=== PATIENT | male | born 1940 | race African-American/Black ===

== ENCOUNTER 2019-04-08 09:12 | Observation (INO) | payer MEDICARE ==
[2019-04-08] MEDS ORDERED: SODIUM CHLORIDE 0.9% 500 ML 500 ML IV STA (10:21)
--- NOTE | 2019-04-08 10:26 | ED ---
General Adult HPI - General Source: patient, family, RN notes reviewed Mode of arrival: wheelchair Limitations: no limitations <González Toledo - Last Filed: 04/08/19 12:41> <Halie Dempsey - Last Filed: 04/08/19 14:11> - General Chief complaint: Weakness Stated complaint: weakness,black out Time Seen by Provider: 04/08/19 10:05 - History of Present Illness Initial comments: Mr. Herrera is a 79-year-old male with a past medical history of hypertension, syncope, CVA, diabetes mellitus who presents to the emergency department for a chief complaint of weakness. Patient states that last night around midnight pat ient woke up and tried to get out of bed and then feels like he passed out or had a syncopal episode. States that he then tried to get out of bed but his legs were so weak he could hardly do it. Patient denies any chest pain shortness of breath or diaphoresis with this episode. States he still feels weak at this time but has not had any other syncopal episodes. States his heart feels like it is beating quickly and then stops. Granddaughter however states that this episode happened this morning. She states she feels that this weakness has been ongoing for over a week. States that he was seen at [facility] one week ago and diagnosed with dehydration. States that he seems to be worsening.Patient has no other complaints at this time including shortness of breath, chest pain, abdominal pain, nausea or vomiting, headache, or visual changes. (González Toledo) - Related Data Home Medications Medication Instructions Recorded Confirmed Atorvastatin Calcium [Lipitor] 10 mg PO HS 04/08/19 04/08/19 Cholecalciferol [Vitamin D3 (25 5,000 unit PO DAILY 04/08/19 04/08/19 Mcg = 1000 Iu)] Losartan Potassium [Cozaar] 100 mg PO DAILY 04/08/19 04/08/19 Metoprolol Succinate (ER) [Toprol 50 mg PO DAILY@1200 04/08/19 04/08/19 XL] Tamsulosin HCl [Flomax] 0.4 mg PO DAILY 04/08/19 04/08/19 amLODIPine [Norvasc] 10 mg PO HS 04/08/19 04/08/19 hydrALAZINE HCL [Apresoline] 50 mg PO TID 04/08/19 04/08/19 Allergies Allergy/AdvReac Type Severity Reaction Status Date / Time Penicillins Allergy Unknown Verified 04/08/19 10:09 Childhood Review of Systems ROS Other: All systems not noted in ROS Statement are negative. <González Toledo P - Last Filed: 04/08/19 12:41> ROS Other: All systems not noted in ROS Statement are negative. <Halie Dempsey E - Last Filed: 04/08/19 14:11> ROS Statement: Those systems with pertinent positive or pertinent negative responses have been documented in the HPI. Past Medical History Past Medical History: CVA/TIA, Diabetes Mellitus, Hypertension, Syncope History of Any Multi-Drug Resistant Organisms: None Reported Past Surgical History: Bowel Resection Additional Past Surgical History / Comment(s): cataract Past Psychological History: No Psychological Hx Reported Smoking Status: Never smoker Past Alcohol Use History: None Reported Past Drug Use History: None Reported <González Toledo P - Last Filed: 04/08/19 12:41> General Exam Limitations: no limitations General appearance: alert, in no apparent distress Head exam: Present: atraumatic, normocephalic, normal inspection Eye exam: Present: normal appearance, PERRL, EOMI. Absent: scleral icterus, con junctival injection, periorbital swelling ENT exam: Present: normal exam, mucous membranes moist Neck exam: Present: normal inspection, full ROM. Absent: tenderness, meningismus, lymphadenopathy Respiratory exam: Present: normal lung sounds bilaterally. Absent: respiratory distress, wheezes, rales, rhonchi, stridor Cardiovascular Exam: Present: regular rate, normal rhythm, normal heart sounds. Absent: systolic murmur, diastolic murmur, rubs, gallop, clicks GI/Abdominal exam: Present: soft, normal bowel sounds. Absent: distended, tenderness, guarding, rebound, rigid Neurological exam: Present: alert, oriented X3, CN II-XII intact, normal gait (No ataxia), other (GCS 15) Expanded Patient oriented to: Present: person, place, time Speech: Present: fluid speech Cranial nerves: EOM's Intact: Normal, Tongue Deviation: Normal, Nystagmus: Normal, Facial Sensation: Normal Cerebellar function: Finger to Nose: Normal Upper motor neuron: Pronator Drift: Normal Sensory exam: Upper Extremity Light Touch: Normal, Upper Extremity Pin Prick: Normal, Lower Extremity Light Touch: Normal, Lower Extremity Pin Prick: Normal Motor strength exam: RUE: 4, LUE: 4, RLE: 4 Eye Response: (4) open spontaneously Motor Response: (6) obeys commands Verbal Response: (5) oriented [place] Total: 15 Psychiatric exam: Present: normal affect, normal mood <González Toledo - Last Filed: 04/08/19 12:41> Course Vital Signs 04/08/19 04/08/19 04/08/19 09:19 12:00 13:35 Temperature 97.7 F 97.7 F Pulse Rate 98 99 99 Respiratory 18 18 18 Rate Blood Pressure 128/64 144/61 157/64 O2 Sat by Pulse 101 H 99 99 Oximetry Medical Decision Making - Lab Data Result diagrams: 04/08/19 10:41 04/08/19 10:41 <González Toledo - Last Filed: 04/08/19 12:41> - Lab Data Result diagrams: 04/08/19 10:41 04/08/19 10:41 <Halie Dempsey - Last Filed: 04/08/19 14:11> - Medical Decision Making Mr. Herrera is an 79-year-old male with a past medical history hypertension, CVA, diabetes who presents for a chief complaint of weakness. Last night around midnight patient woke up try to get out of bed and then passed out. Patient states his legs were so weak that he could not walk well. He denies chest pain shortness of breath or abdominal pain with this. States he does still feel weak but has not had another syncopal episode. Granddaughter states that patient's history is inaccurate in that he had this episode this morning. However she states he has been weak for over a week now. Was seen in the ER at [facility] and discharged home with a diagnosis of dehydration. However granddaughter is concerned that this is now worsening. On exam he is a pleasant male. Well appearing. Vitals are stable. Patient was able to ambulate but does have noted weakness when doing so. No ataxia. CBC and CMP are unremarkable. Mildly elevated creatinine of 1.48, no comparison creatinines for baseline. Troponin is negative. EKG is unremarkable. CT brain was obtained which showed no acute intracranial abnormality. There is evidence of old infarct which patient is aware of. Chest x-ray showed borderline increased cardiac silhouette, the patient denies any shortness of breath. Patient reevaluated. Daughters are very concerned about this. Given near syncopal episode with high heart score patient will be admitted for further evaluation and cardiology consultation. Dr. Dempsey discussed this case with Dr. Rios patient's primary care provider who accepted this admission. (González Toledo) I, Dr. Halie Dempsey, Personally saw and examined the patient. I have reviewed and agree with the BOBBIN SORTER/PA findings, including all diagnostic interpretations and treatment plans as written unless otherwise stated. I was present for the mckenzie portions of any procedures and the inclusive time noted for any critical care treatment. The patient was complaining of back pain, however per patient and his family that is chronic. He had equal pulses, no abdominal bruit, no carotid bruit. At this time unlikely his symptoms are due to aortic pathology. He has no shortness of breath to suggest PE. Stable for transfer to the floor. (Halie Dempsey) - Lab Data Lab Results 04/08/19 04/08/19 04/08/19 Range/Units 10:41 10:41 10:41 WBC 4.6 (3.8-10.6) k/uL RBC 4.65 (4.30-5.90) m/uL Hgb 12.2 L (13.0-17.5) gm/dL Hct 39.4 (39.0-53.0) % MCV 84.6 (80.0-100.0) fL MCH 26.2 (25.0-35.0) pg MCHC 31.0 (31.0-37.0) g/dL RDW 14.1 (11.5-15.5) % Plt Count 258 (150-450) k/uL Neutrophils % 66 % Lymphocytes % 21 % Monocytes % 6 % Eosinophils % 3 % Basophils % 0 % Neutrophils # 3.0 (1.3-7.7) k/uL Lymphocytes # 0.9 L (1.0-4.8) k/uL Monocytes # 0.3 (0-1.0) k/uL Eosinophils # 0.1 (0-0.7) k/uL Basophils # 0.0 (0-0.2) k/uL PT (9.0-12.0) sec INR (<1.2) APTT (22.0-30.0) sec Sodium 140 (137-145) mmol/L Potassium 4.1 (3.5-5.1) mmol/L Chloride 105 (98-107) mmol/L Carbon Dioxide 25 (22-30) mmol/L Anion Gap 10 mmol/L BUN 16 (9-20) mg/dL Creatinine 1.48 H (0.66-1.25) mg/dL Est GFR (CKD-EPI)AfAm 51 (>60 ml/min/1.73 sqM) Est GFR (CKD-EPI)NonAf 44 (>60 ml/min/1.73 sqM) Glucose 110 H (74-99) mg/dL Plasma Lactic Acid Colt 1.0 (0.7-2.0) mmol/L Calcium 9.9 (8.4-10.2) mg/dL Magnesium 2.2 (1.6-2.3) mg/dL Total Bilirubin 0.4 (0.2-1.3) mg/dL AST 32 (17-59) U/L ALT 37 (21-72) U/L Alkaline Phosphatase 86 (38-126) U/L Troponin I (0.000-0.034) ng/mL Total Protein 7.3 (6.3-8.2) g/dL Albumin 4.3 (3.5-5.0) g/dL TSH 3.690 (0.465-4.680) mIU/L Urine Color Urine Appearance (Clear) Urine pH (5.0-8.0) Ur Specific [place] (1.001-1.035) Urine Protein (Negative) Urine Glucose (UA) (Negative) Urine Ketones (Negative) Urine Blood (Negative) Urine Nitrite (Negative) Urine Bilirubin (Negative) Urine Urobilinogen (<2.0) mg/dL Ur Leukocyte Esterase (Negative) 04/08/19 04/08/19 04/08/19 Range/Units 10:41 10:41 11:42 WBC (3.8-10.6) k/uL RBC (4.30-5.90) m/uL Hgb (13.0-17.5) gm/dL Hct (39.0-53.0) % MCV (80.0-100.0) fL MCH (25.0-35.0) pg MCHC (31.0-37.0) g/dL RDW (11.5-15.5) % Plt Count (150-450) k/uL Neutrophils % % Lymphocytes % % Monocytes % % Eosinophils % % Basophils % % Neutrophils # (1.3-7.7) k/uL Lymphocytes # (1.0-4.8) k/uL Monocytes # (0-1.0) k/uL Eosinophils # (0-0.7) k/uL Basophils # (0-0.2) k/uL PT 10.3 (9.0-12.0) sec INR 1.0 (<1.2) APTT 24.6 (22.0-30.0) sec Sodium (137-145) mmol/L Potassium (3.5-5.1) mmol/L Chloride (98-107) mmol/L Carbon Dioxide (22-30) mmol/L Anion Gap mmol/L BUN (9-20) mg/dL Creatinine (0.66-1.25) mg/dL Est GFR (CKD-EPI)AfAm (>60 ml/min/1.73 sqM) Est GFR (CKD-EPI)NonAf (>60 ml/min/1.73 sqM) Glucose (74-99) mg/dL Plasma Lactic Acid Colt (0.7-2.0) mmol/L Calcium (8.4-10.2) mg/dL Magnesium (1.6-2.3) mg/dL Total Bilirubin (0.2-1.3) mg/dL AST (17-59) U/L ALT (21-72) U/L Alkaline Phosphatase (38-126) U/L Troponin I <0.012 (0.000-0.034) ng/mL Total Protein (6.3-8.2) g/dL Albumin (3.5-5.0) g/dL TSH (0.465-4.680) mIU/L Urine Color Yellow Urine Appearance Clear (Clear) Urine pH 6.0 (5.0-8.0) Ur Specific [place] 1.008 (1.001-1.035) Urine Protein Negative (Negative) Urine Glucose (UA) Negative (Negative) Urine Ketones Negative (Negative) Urine Blood Negative (Negative) Urine Nitrite Negative (Negative) Urine Bilirubin Negative (Negative) Urine Urobilinogen <2.0 (<2.0) mg/dL Ur Leukocyte Esterase Negative (Negative) Disposition Is patient prescribed a controlled substance at d/c from ED?: No Time of Disposition: 12:44 <González Toledo P - Last Filed: 04/08/19 12:41> <Halie Dempsey - Last Filed: 04/08/19 14:11> Clinical Impression: Near syncope, Weakness Disposition: ADMITTED IP TO THIS HOSP Condition: Fair
[2019-04-08 11:02] LABS: Basophils % (A) 0 %; Eosinophils # (A) 0.1 k/uL (0-0.7); Eosinophils % (A) 3 %; HCT 39.4 % (39.0-53.0); HGB 12.2 gm/dL (13.0-17.5); Lymphocytes # (A) 0.9 k/uL (1.0-4.8); Lymphocytes % (A) 21 %; MCH 26.2 pg (25.0-35.0); MCV 84.6 fL (80.0-100.0); Mean Platelet Volume 7.1; Monocytes # (A) 0.3 k/uL (0-1.0); Monocytes % (A) 6 %; Neutrophils % (A) 66 %; Platelet Count 258 k/uL (150-450); RBC 4.65 m/uL (4.30-5.90); RDW 14.1 % (11.5-15.5); WBC 4.6 k/uL (3.8-10.6)
[2019-04-08 11:18] LABS: Albumin 4.3 g/dL (3.5-5.0); Calcium 9.9 mg/dL (8.4-10.2); Magnesium 2.2 mg/dL (1.6-2.3); Potassium 4.1 mmol/L (3.5-5.1); Total Bilirubin 0.4 mg/dL (0.2-1.3); Total Protein 7.3 g/dL (6.3-8.2)
[2019-04-08 11:27] LABS: Partial Thromboplastin Time 24.6 sec (22.0-30.0); Prothrombin Time 10.3 sec (9.0-12.0)
--- NOTE | 2019-04-08 11:40 | CT ---
EXAMINATION TYPE: CT brain wo con DATE OF EXAM: 04/08/2019 COMPARISON: None HISTORY: 79-year-old male weakness and dizziness. TECHNIQUE: Examination was done in axial plane without intravenous contrast. Coronal and sagittal r econstructions performed. CT DLP: 1158.4 mGycm Automated exposure control for dose reduction was used. FINDINGS: There is no evidence of acute intracranial hemorrhage, acute ischemic changes, mass, mass-effect, or extra-axial fluid collection. There is no effacement of cerebral sulci or basal subarachnoid cister ns. There is no midline shift. Barragan-white matter distinction is preserved. Old deep white matter infarct with encephalomalacia left mondragon radiata extending into the basal gang priscila. Mild patchy white matter hypodensities in both cerebral hemispheres. Mild ventricular prominence seco ndary to central cerebral atrophy. Leftward nasal septal deviation. Paranasal sinuses and mastoid air cells are well pneumatized. Orbits and globes are intact. IMPRESSION: Mild age-related atrophy. Old white matter infarct left mondragon radiata and background of mild chronic small vessel ischemic disease. No acute intracranial abnormality seen.
--- NOTE | 2019-04-08 11:40 | XR ---
EXAMINATION TYPE: XR chest 2V DATE OF EXAM: 04/08/2019 COMPARISON: NONE HISTORY: Weakness and dizziness TECHNIQUE: Frontal and lateral views of the chest are obtained. FINDINGS: There is no focal air space opacity, pleural effusion, or pneumothorax seen. The cardiac silhouette size is borderline enlarged. The osseous structures are intact. Hypertrophic changes are present at the acromioclavicular joints. Aorta is dense. IMPRESSION: Borderline increased size of cardiac silhouette.
[2019-04-08 12:01] LABS: Appearance,Urine Clear (Clear); Bilirubin,Urine Negative (Negative); Blood,Urine Negative (Negative); Color,Urine Yellow; Glucose,Urine (UA) Negative (Negative); Ketones,Urine Negative (Negative); Leukocyte Esterase,Urine Negative (Negative); Nitrite,Urine Negative (Negative); Protein,Urine Negative (Negative); Specific Gravity,Urine 1.008 (1.001-1.035); Urobilinogen,Urine <2.0 mg/dL (<2.0)
[2019-04-08] MEDS ORDERED: NITROGLYCERIN SL TABS 0.4 MG TAB SUBLINGUAL PRN (12:39)
[2019-04-08] MEDS ORDERED: HYDROcodone/APAP 5-325MG 1 EACH TAB PO PRN (12:50)
[2019-04-08] MEDS ORDERED: HYDROcodone/APAP 5-325MG 1 EACH TAB PO STA (12:50)
--- NOTE | 2019-04-08 16:43 | US ---
EXAMINATION TYPE: US carotid duplex BILAT DATE OF EXAM: 04/08/2019 COMPARISON: NONE CLINICAL HISTORY: pre-syncope, left bruit. Syncope EXAM MEASUREMENTS: RIGHT: Peak Systolic Velocity (PSV) cm/sec ----- Right CCA: 73.2 ----- Right ICA: 104.0 ----- Right ECA: 117.9 ICA/CCA ratio: 1.4 RIGHT: End Diastole cm/sec ----- Right CCA: 13.8 ----- Right ICA: 23.7 ----- Right ECA: 5.2 LEFT: Peak Systolic Velocity (PSV) cm/sec ----- Left CCA: 100.2 ----- Left ICA: 81.7 ----- Left ECA: 75.3 ICA/CCA ratio: 0.8 LEFT: End Diastole cm/sec ----- Left CCA: 13.4 ----- Left ICA: 19.8 ----- Left ECA: 0.0 VERTEBRALS (direction of flow): Right Vertebral: Antegrade Left Vertebral: Antegrade Rhythm: Normal No elevated velocities, no significant stenosis. IMPRESSION: There is antegrade flow in the vertebral arteries. The images and measurements suggests less than 20% stenosis in both internal carotid arteries. Criteria for Assigning % of Stenosis / Diameter reduction (Estimation based on the indirect measurements of the internal carotid artery velocities (ICA PSV). 1. Normal (no stenosis)=ICA PSV < 125 cm/s: ratio < 2.0: ICA EDV<40 cm/s. 2. Less than 50% stenosis=ICA PSV < 125 cm/s: ratio < 2.0: ICA EDV<40 cm/s. 3. 50 to 69% stenosis=ICA PSV of 125 to 230 cm/s: ration 2.0 ? 4.0: ICA EDV 40-100 cm/s. 4. Greater than 70% stenosis to near occlusion= ICA PSV > 230 cm/s: ratio > 4.0: ICA EDV > 100 cm/s. 5. Near occlusion= ICA PSV velocities may be low or undetectable: variable ratio and ICA EDV. 6. Total occlusion=unable to detect flow.
[2019-04-08] MEDS ORDERED: REGADENOSON 0.4 MG/5 ML SYRINGE IV ONE (18:14)
[2019-04-08] MEDS: hydrALAZINE HCL 50 MG TAB PO SCH ×2 (18:20→20:28)
[2019-04-08] MEDS: SODIUM CHLORIDE 0.9% 1,000 ML IV SCH (18:42)
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
--- NOTE | 2019-04-08 19:10 | XR ---
EXAMINATION TYPE: XR lumbosacral spine min 4V DATE OF EXAM: 04/08/2019 COMPARISON: NONE HISTORY: None TECHNIQUE: 5 views FINDINGS: Lumbar vertebra have fairly normal alignment. There is mild narrowing at L4-5 disc. There i s spurring anteriorly throughout the lumbar spine. I see no compression fracture. Sacroiliac joints a ppear intact. IMPRESSION: Spondylotic multilevel changes. No fracture seen.
[2019-04-08] MEDS: SENNOSIDES-DOCUSATE SODIUM 1 EACH TAB PO SCH (20:28)
[2019-04-08] MEDS ORDERED: amLODIPine 10 MG TAB PO SCH (21:00)
[2019-04-08] MEDS ORDERED: ATORVASTATIN 10 MG TAB PO SCH (21:00)
--- NOTE | 2019-04-08 21:39 | PN ---
PROGRESS NOTE Mr. Herrera was evaluated by me today after initial evaluation by my nurse practitioner Stephanie. He is comfortable resting. He had an episode when he felt weak and tired, but did not pass out. The patient insists that he never had a syncope. He did complain of some pressure in the chest however. He is resting comfortably without symptoms. His troponins are normal. EKG does not reveal any acute changes. I am recommending that we will perform a Lexiscan stress test tomorrow. He appears to be clinically dehydrated. I will hydrate him today. I will perform a Lexiscan stress test tomorrow. Based on this, I will make further recommendations. I will review the echocardiogram as well. The patient's clinical picture does not suggest acute myocardial injury and the pain seems atypical. However, given his risk factors, we would like to exclude any myocardial ischemia or injury. Discussed with the patient at length. We will hydrate him tonight, perform a Lexiscan stress test tomorrow and based on clinical course, we will make further recommendations. MMBÁRBARAL / BEARN: [id number] /
[2019-04-09] MEDS ORDERED: AMINOPHYLLINE 500 MG/20 ML VIAL IV PRN (07:00)
[2019-04-09] MEDS ORDERED: CAFFEINE CITRATE 60 MG/3 ML VIAL IV PRN (07:00)
[2019-04-09 07:05] LABS: Basophils % (A) 0 %; Eosinophils # (A) 0.2 k/uL (0-0.7); Eosinophils % (A) 4 %; HCT 36.1 % (39.0-53.0); HGB 11.5 gm/dL (13.0-17.5); Lymphocytes # (A) 1.7 k/uL (1.0-4.8); Lymphocytes % (A) 39 %; MCH 27.4 pg (25.0-35.0); MCHC 31.8 g/dL (31.0-37.0); MCV 86.2 fL (80.0-100.0); Mean Platelet Volume 7.2; Monocytes # (A) 0.3 k/uL (0-1.0); Monocytes % (A) 6 %; Neutrophils # (A) 2.1 k/uL (1.3-7.7); Neutrophils % (A) 47 %; Platelet Count 244 k/uL (150-450); RBC 4.19 m/uL (4.30-5.90); RDW 14.1 % (11.5-15.5); WBC 4.4 k/uL (3.8-10.6)
[2019-04-09 07:18] LABS: Calcium 9.3 mg/dL (8.4-10.2)
[2019-04-09] MEDS ORDERED: DIPYRIDAMOLE 56.9 MG in SODIUM CHLORIDE 0.9% 38.62 ML IV ONE (07:45)
[2019-04-09] MEDS ORDERED: DOBUTamine DRIP for NUC MED 500 MG in DEXTROSE/WATER 1 250ML.BAG IV ONE (08:07)
[2019-04-09 08:29] VITALS: RESP 18
[2019-04-09] MEDS: SODIUM CHLORIDE 0.9% 1,000 ML IV SCH (08:38)
[2019-04-09] MEDS ORDERED: LOSARTAN 50 MG TAB PO SCH (09:00)
[2019-04-09] MEDS ORDERED: ASPIRIN 325 MG TAB PO SCH (09:00)
[2019-04-09] MEDS ORDERED: TAMSULOSIN 0.4 MG CAP.ER.24H PO SCH (09:00)
[2019-04-09] MEDS ORDERED: ASPIRIN 81 MG PO SCH (09:00)
--- NOTE | 2019-04-09 10:55 | P.CRDCN ---
History of Present Illness History of present illness: This is a pleasant 79-year-old -[place] male past medical history significant for hypertension, dyslipidemia, diabetes mellitus and history of CVA with residual right-sided weakness. He denies history of coronary artery disease and does not follow with a rehabilitation caseworker for any reason. We've been asked to see him in consultation secondary to a near syncopal episode this morning. The patient states he woke up and was attempting to walk to the bathroom when he felt acutely weak. He states it felt like he was going to fall. He is quite adament that he did not pass out nor did he feel like he was going to pass out. It reminded him of how he fell when he suffered a previous stroke. He also experienced some vague chest discomfort described as a pressure in the mid-sternal region. There was no radiation and no associated symptoms. He denies associated shortness of breath, nausea, vomiting or diaphoresis. He is seen and examined resting comfortably in no acute distress. He states he had no recurrence of these symptoms since coming to the hospital. He was recently treated at [facility] for dehydration. Per the ED note the family was present in ED and has noticed increased weakness for the past week. No family present during my exam. EKG reveals sinus mechanism with no acute ST or T wave abnormalities noted. Chest x-ray is negative for acute cardiopulmonary process. Laboratory data reviewed, WBC 4.6, hemoglobin 12.2, platelets 258, sodium 140, potassium 4.1, creatinine 1.48, magnesium 2.2, cardiac enzymes negative 1, TSH 3.69. Current cardiac medications include amlodipine 10 mg daily, Toprol 50 mg daily, losartan 100 mg daily, hydralazine 50 mg 3 times a day and atorvastatin 10 mg daily. At the time of my exam: CONSTITUTIONAL: Denies fever. Denies chills. EYES: Denies blurred vision. Denies vision changes. Denies eye pain. EARS, NOSE, MOUTH & THROAT: Denies headache. Denies sore throat. Denies ear pain. CARDIOVASCULAR: Denies chest pain. Denies shortness of breath. Denies orthopnea. Denies PND. Denies palpitations. RESPIRATORY: Denies cough. GASTROINTESTINAL: Denies abdominal pain. Denies diarrhea. Denies constipation. Denies nausea. Denies vomiting. MUSCULOSKELETAL: Denies myalgias. INTEGUMENTARY: Denies pruitis. Denies rash. NEUROLOGIC: Denies numbness. Denies tingling. Denies weakness. PSYCHIATRIC: Denies anxiety. Denies depression. ENDOCRINE: Denies fatigue. Denies weight change. Denies polydipsia. Denies polyurina. GENITOURINARY: Denies burning, hematuria or urgency with micturation. HEMATOLOGIC: Denies history of anemia. Denies bleeding. Blood pressure 150/75 heart rate 90 afebrile and maintaining oxygen saturation on room air GENERAL: This is a 79-year-old -[place] male in no apparent distress at the time of my examination. HEENT: Head is atraumatic, normocephalic. Pupils are equal, round. Sclerae an icteric. Conjunctivae are clear. Mucous membranes of the mouth are moist. Neck is supple. There is no jugular venous distention. No carotid bruit is heard. LUNGS: Clear to auscultation no wheezes, rales or rhonchi. No chest wall tenderness is noted on palpation or with deep breathing. HEART: Regular rate and rhythm with systolic ejection murmur at the left sternal border, more prominent at the apex, no rubs or gallops. S1 and S2 heard. ABDOMEN: Soft, nontender. Bowel sounds are heard. No organomegaly noted. EXTREMITIES: No evidence of peripheral edema and no calf tenderness noted. VASCULAR: Radial and dorsalis pedis pulses palpated, no evidence of clubbing. NEUROLOGIC: Patient is awake, alert and oriented x3. ASSESSMENT Generalized weakness Chest pain, atypical. Hypertension History of CVA Dyslipidemia Diabetes mellitus Kidney injury, no old levels for comparison. PLAN Continue to obtain serial cardiac enzymes to rule out an acute event. Obtain 2D echocardiogram and doppler study to assess cardiac structure and function. Obtain bilateral carotid doppler to assess for stenosis. Resume hydralazine, losartan, atorvastatin, aspirin, amlodipine and toprol. Ongoing telemetry monitoring. Repeat BMP in the morning. Check NTproBNP and lipid profile. Further recommendations to follow based on clinical course. Thank you kindly for this consultation. Nurse Practitioner note has been reviewed, I agree with a documented findings and plan of care. Patient was seen and examined. Past Medical History Past Medical History: CVA/TIA, Diabetes Mellitus, Hyperlipidemia, Hypertension, Prostate Disorder, Syncope Additional Past Medical History / Comment(s): CVA with right sided weakness, multiple TIAs, prostate CA- no radiation or chem, History of Any Multi-Drug Resistant Organisms: None Reported Past Surgical History: Bowel Resection Additional Past Surgical History / Comment(s): cataract removed. right hand index and middle finger were cut off and reattached. Past Anesthesia/Blood Transfusion Reactions: No Reported Reaction Past Psychological History: No Psychological Hx Reported Smoking Status: Never smoker Past Alcohol Use History: None Reported Past Drug Use History: None Reported Medications and Allergies Home Medications Medication Instructions Recorded Confirmed Type Atorvastatin Calcium [Lipitor] 10 mg PO HS 04/08/19 04/08/19 History Cholecalciferol [Vitamin D3 (25 5,000 unit PO DAILY 04/08/19 04/08/19 History Mcg = 1000 Iu)] Losartan Potassium [Cozaar] 100 mg PO DAILY 04/08/19 04/08/19 History Metoprolol Succinate (ER) [Toprol 50 mg PO DAILY@1200 04/08/19 04/08/19 History XL] Tamsulosin HCl [Flomax] 0.4 mg PO DAILY 04/08/19 04/08/19 History amLODIPine [Norvasc] 10 mg PO HS 04/08/19 04/08/19 History hydrALAZINE HCL [Apresoline] 50 mg PO TID 04/08/19 04/08/19 History Allergies Allergy/AdvReac Type Severity Reaction Status Date / Time Penicillins Allergy Unknown Verified 04/08/19 10:09 Childhood Physical Exam Vitals: Vital Signs Temp Pulse Pulse Resp BP BP Pulse Ox 04/08/19 13:56 98.3 F 90 17 150/75 98 04/08/19 13:35 97.7 F 99 18 157/64 99 04/08/19 12:00 99 18 144/61 99 04/08/19 09:19 97.7 F 98 18 128/64 101 H Intake and Output 04/08/19 04/08/19 04/08/19 06:59 14:59 22:59 Other: Weight 99.79 kg Results 04/09/19 06:49 04/09/19 06:49 Cardiac Enzymes 04/08/19 04/08/19 Range/Units 10:41 10:41 AST 32 (17-59) U/L Troponin I <0.012 (0.000-0.034) ng/mL Coagulation 04/08/19 Range/Units 10:41 PT 10.3 (9.0-12.0) sec APTT 24.6 (22.0-30.0) sec CBC 04/08/19 Range/Units 10:41 WBC 4.6 (3.8-10.6) k/uL RBC 4.65 (4.30-5.90) m/uL Hgb 12.2 L (13.0-17.5) gm/dL Hct 39.4 (39.0-53.0) % Plt Count 258 (150-450) k/uL Comprehensive Metabolic Panel 04/08/19 Range/Units 10:41 Sodium 140 (137-145) mmol/L Potassium 4.1 (3.5-5.1) mmol/L Chloride 105 (98-107) mmol/L Carbon Dioxide 25 (22-30) mmol/L BUN 16 (9-20) mg/dL Creatinine 1.48 H (0.66-1.25) mg/dL Glucose 110 H (74-99) mg/dL Calcium 9.9 (8.4-10.2) mg/dL AST 32 (17-59) U/L ALT 37 (21-72) U/L Alkaline Phosphatase 86 (38-126) U/L Total Protein 7.3 (6.3-8.2) g/dL Albumin 4.3 (3.5-5.0) g/dL Current Medications Generic Name Dose Route Start Last Admin Trade Name Freq PRN Reason Stop Dose Admin Hydrocodone Bitart/Acetaminophen 1 each 04/08/19 12:50 Datil 5-325 PO Q8H PRN Pain Amlodipine Besylate 10 mg 04/08/19 21:00 Norvasc PO HS [facility] Aspirin 81 mg 04/09/19 09:00 Aspirin PO DAILY [facility] Atorvastatin Calcium 10 mg 04/08/19 21:00 Lipitor PO HS [facility] Hydralazine HCl 50 mg 04/08/19 16:00 Apresoline PO TID [facility] Losartan Potassium 100 mg 04/09/19 09:00 Cozaar PO DAILY [facility] Metoprolol Succinate 50 mg 04/09/19 12:00 Toprol Xl PO DAILY@1200 [facility] Nitroglycerin 0.4 mg 04/08/19 12:39 Nitrostat SUBLINGUAL Q5M PRN Chest Pain Intake and Output 04/08/19 04/08/19 04/08/19 06:59 14:59 22:59 Other: Weight 99.79 kg Patient Weight 04/09/19 06:59 Weight 99.79 kg 04/08/19 10:41 04/08/19 10:41
--- NOTE | 2019-04-09 11:05 | P.PN ---
Subjective This is a pleasant 79-year-old -[place] male past medical history significant for hypertension, dyslipidemia, diabetes mellitus and history of CVA with residual right-sided weakness. 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 We've been asked to see him in consultation secondary to a near syncopal episode this morning. The patient states he woke up and was attempting to walk to the bathroom when he felt acutely weak. He states it felt like he was going to fall. He is quite adament that he did not pass out nor did he feel like he was going to pass out. It reminded him of how he fell when he suffered a previous stroke. He also experienced some vague chest discomfort described as a pressure in the mid-sternal region. There was no radiation and no associated symptoms. He denies associated shortness of breath, nausea, vomiting or diaphoresis. He is seen and examined resting comfortably in no acute distress. He states he had no recurrence of these symptoms since coming to the hospital. He was recently treated at [facility] for dehydration. Per the ED note the family was present in ED and has noticed increased weakness for the past week. No family present during my exam. EKG reveals sinus mechanism with no acute ST or T wave abnormalities noted. Chest x-ray is negative for acute cardiopulmonary process. Laboratory data reviewed, WBC 4.6, hemoglobin 12.2, platelets 258, sodium 140, potassium 4.1, creatinine 1.48, magnesium 2.2, cardiac enzymes negative 1, TSH 3.69. Current cardiac medications include amlodipine 10 mg daily, Toprol 50 mg daily, losartan 100 mg daily, hydralazine 50 mg 3 times a day and atorvastatin 10 mg daily. 04/09/2019 Pt is seen and examined sitting up in bed in no acute distress. He denies any further symptoms of chest pain. He continues to feel overall weak and states when he tries to stand up he cannot manage or have the strength to get himself up out of bed. Carotid doppler show less than 20% stenosis bilaterally. Echo has been obtained and will be reviewed. Laboratory data, WBC 4.4, hemoglobin 11.5, platelets 244, sodium 141, potassium 4.0, creatinine 1.3, cardiac enzymes negative 3, proBNP 100, LDL 86 and HDL 71. Blood pressure 131/65 heart rate 84 afebrile maintaining oxygen saturation on room air. GENERAL: This is a 79-year-old -[place] male in no apparent distress at the time of my examination. HEENT: Head is atraumatic, normocephalic. Pupils are equal, round. Sclerae anicteric. Conjunctivae are clear. Mucous membranes of the mouth are moist. Neck is supple. There is no jugular venous distention. No carotid bruit is heard. LUNGS: Clear to auscultation no wheezes, rales or rhonchi. No chest wall tenderness is noted on palpation or with deep breathing. HEART: Regular rate and rhythm with systolic ejection murmur at the left sternal border, more prominent at the apex, no rubs or gallops. S1 and S2 heard. EXTREMITIES: Trace bilateral lower extremity edema and no calf tenderness noted. ASSESSMENT Generalized weakness Chest pain, atypical. Hypertension History of CVA Dyslipidemia Diabetes mellitus Kidney injury, no old levels for comparison. PLAN An acute coronary event has been ruled out. Perform dobutamine stress echocardiogram to assess for stress-induced cardiac i schemia. If stress test is normal he may be discharged from a cardiac perspective. No evidence of heart failure. Lower extremity edema may be related to amlodipine. Nurse Practitioner note has been reviewed, I agree with a documented findings and plan of care. Patient was seen and examined. Objective - Vital Signs Vital signs: Vital Signs Temp 97.9 F 04/09/19 07:30 Pulse 84 04/09/19 08:00 Resp 18 04/09/19 08:00 BP 131/65 04/09/19 07:30 Pulse Ox 98 04/09/19 07:30 Intake & Output 04/08/19 04/09/19 04/09/19 18:59 06:59 18:59 Intake Total 600 Output Total 300 Balance 300 Weight 99.79 kg Intake: Intake, IV Titration 600 Amount Sodium Chloride 0.9% 1, 600 000 ml @ 75 mls/hr IV . [id number] KAVIN Rx#:[id number] Output: Urine 300 Other: Voiding Method Toilet Toilet Toilet # Voids 2 - Labs CBC & Chem 7: 04/09/19 06:49 04/09/19 06:49 Labs: Abnormal Lab Results - Last 24 Hours (Table) 04/08/19 04/08/19 04/09/19 Range/Units 10:41 10:41 06:49 RBC (4.30-5.90) m/uL Hgb 12.2 L (13.0-17.5) gm/dL Hct (39.0-53.0) % Lymphocytes # 0.9 L (1.0-4.8) k/uL Chloride 110 H (98-107) mmol/L Creatinine 1.48 H 1.30 H (0.66-1.25) mg/dL Glucose 110 H (74-99) mg/dL HDL Cholesterol 71 H (40-60) mg/dL 04/09/19 Range/Units 06:49 RBC 4.19 L (4.30-5.90) m/uL Hgb 11.5 L (13.0-17.5) gm/dL Hct 36.1 L (39.0-53.0) % Lymphocytes # (1.0-4.8) k/uL Chloride (98-107) mmol/L Creatinine (0.66-1.25) mg/dL Glucose (74-99) mg/dL HDL Cholesterol (40-60) mg/dL
[2019-04-09] MEDS ORDERED: METOPROLOL SUCCINATE (ER) 50 MG TAB.ER.24H PO SCH (12:00)
[2019-04-09 12:02] VITALS: BP 155/68; PULSE 81; TEMP 97.3
[2019-04-09] MEDS: SENNOSIDES-DOCUSATE SODIUM 1 EACH TAB PO SCH (12:56)
[2019-04-09] MEDS: hydrALAZINE HCL 50 MG TAB PO SCH (12:56)
--- NOTE | 2019-04-09 13:47 | P.DS ---
Providers Date of admission: 04/08/19 12:39 Expected date of discharge: 04/09/19 (Near syncopal episode) Attending physician: Vahe Rios Consults: 04/08/19 12:39 Consult Physician Routine Consulting Provider: Mihir Fitzgerald Consult Reason/Comments: near syncope Do you want consulting provider notified?: Yes Primary care physician: Vahe Rios Final diagnoses: #1 near syncopal episode with possible orthostatic hypotension. #2 carotid artery stenosis was not hemodynamic significance with 20% occlusion. #3 stress exercise test reported to be negative and cleared for discharge by cardiology team. 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 #5 advanced prostatic cancer which patient requested no treatment. #6 hyperlipidemia. #7 hypertension with hypertensive heart disease. #8 questionable TIA with a previous history of CVA. #9 history of vitamin D deficiency. #10 prostatic enlargement. Presentation to the ER 79 years old -[place] male presented to the emergency room with the near-syncopal episode and weakness of the lower extremities, patient not a diabetic. They did consult cardiology who did a workup. Hospital course: Patient admitted under observation) 158 bed 1 monitored. Patient underwent carotid duplex study which was essentially negative . Patient had several testing including computed tomography scan of the brain on admission CT of the brain indicating mild age-related atrophy, old white matter infarct in the left mondragon Calle at the. Background of mild chronic small vessel disease no acute intracranial abnormality. Also chest x-ray was done with the border Increased size of cardiac silhouette. EKG was normal sinus rhythm with a rate of 88 bpm and nonspecific T-wave abnormality. Patient underwent stress testing this morning, cardiology team called the front man and the nurse indicating the patient was negative for a stress test and he can go home with the clearance from cardiology. Patient is conscious alert oriented 3 able to stand up and walk and ambulate. I did not see any results of the echocardiogram which was ordered by the cardiology. Examination on discharge: Patient is conscious alert oriented 3, his granddaughter at bedside and I did explain in front of the patient that he has the history of the biopsy of the prostate with malignant neoplasm of the prostate, and she understands and the had a question about his illness which is wondering and he was hiding that from his family but they need to know as patient has agreed to let them know. 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 Nieto. Patient seen on consultation by Dr. GRETCHEN Calle will order Lexiscan stress test. Patient is conscious alert oriented 3 his vital sign indicating that temperature 97.3 F oral and pulse rate is 81 beats per minutes and regular sinus respiratory rate 18/m normal nonlabored. His blood pressure 155/68 with a mean 97 his pulse ox 99% on room air. His HEENT was negative no changes. Neck was supple no JVD no thyromegaly no lymphadenopathy trachea midline. Chest clear to auscultation and percussion, heart was regular sinus rhythm, abdomen was soft positive bowel sounds no organ enlargement, extremities no edema and positive pulses and patient is able to ambulate. Neurologically no acute events no lateralizing sign and conscious alert oriented 3 moving 4 extremities. Assessment and plan: Patient is stable general condition to be discharged home today, follow-up was Dr. Rios and follow-up with the cardiology. Patient Condition at Discharge: Fair Plan - Discharge Summary Discharge Rx Participant: Yes New Discharge Prescriptions: New Aspirin 81 mg PO DAILY chew Sennosides-Docusate Sodium [Senokot-S] 1 each PO BID tab Continue hydrALAZINE HCL [Apresoline] 50 mg PO TID amLODIPine [Norvasc] 10 mg PO HS Tamsulosin HCl [Flomax] 0.4 mg PO DAILY Losartan Potassium [Cozaar] 100 mg PO DAILY Atorvastatin Calcium [Lipitor] 10 mg PO HS Cholecalciferol [Vitamin D3 (25 Mcg = 1000 Iu)] 5,000 unit PO DAILY Metoprolol Succinate (ER) [Toprol XL] 50 mg PO DAILY@1200 No Action Ibuprofen [Motrin] 600 mg PO Q8HR PRN PRN Reason: Moderate To Severe Pain Ibuprofen 600 mg PO TID-W/MEALS PRN PRN Reason: Pain Discharge Medication List Atorvastatin Calcium [Lipitor] 10 mg PO HS 04/08/19 [History] Cholecalciferol [Vitamin D3 (25 Mcg = 1000 Iu)] 5,000 unit PO DAILY 04/08/19 [History] Losartan Potassium [Cozaar] 100 mg PO DAILY 04/08/19 [History] Metoprolol Succinate (ER) [Toprol XL] 50 mg PO DAILY@1200 04/08/19 [History] Tamsulosin HCl [Flomax] 0.4 mg PO DAILY 04/08/19 [History] amLODIPine [Norvasc] 10 mg PO HS 04/08/19 [History] hydrALAZINE HCL [Apresoline] 50 mg PO TID 04/08/19 [History] Aspirin 81 mg PO DAILY chew 04/09/19 [Rx] Ibuprofen 600 mg PO TID-W/MEALS PRN 04/09/19 [History] Ibuprofen [Motrin] 600 mg PO Q8HR PRN 04/09/19 [History] Sennosides-Docusate Sodium [Senokot-S] 1 each PO BID tab 04/09/19 [Rx] Follow up Appointment(s)/Referral(s): Vahe Rios MD [Primary Care Provider] - 1-2 days Discharge Disposition: HOME SELF-CARE
--- NOTE | 2019-04-09 18:31 | ECHOF ---
Referral Reason:cp, sob, syncope MEASUREMENTS -------- HEIGHT: 172.7 cm WEIGHT: 99.8 kg BP: 153/72 RVIDd: 3.5 cm (< 3.3) IVSd: 1.4 cm (0.6 - 1.1) LVIDd: 4.2 cm (3.9 - 5.3) LVPWd: 1.4 cm (0.6 - 1.1) IVSs: 1.8 cm LVIDs: 3.5 cm LVPWs: 1.6 cm LA Diam: 3.5 cm (2.7 - 3.8) LAESV Index (A-L): 37.74 ml/m Ao Diam: 3.6 cm (2.0 - 3.7) AV Cusp: 1.6 cm (1.5 - 2.6) MV EXCURSION: 17.701 mm (> 18.000) MV EF SLOPE: 79 mm/s (70 - 150) EPSS: 0.6 cm MV E Ambrose: 1.29 m/s MV DecT: 193 ms MV A Ambrose: 1.00 m/s MV E/A Ratio: 1.28 AV maxP.79 mmHg AV meanP.57 mmHg RAP: 5.00 mmHg RVSP: 43.88 mmHg FINDINGS -------- Sinus rhythm. This was a technically good study. The left ventricular size is normal. There is moderate concentric left ventricular hypertrophy. O verall left ventricular systolic function is normal with, an EF between 60 - 65 %. The right ventricle is mildly enlarged. LA is moderately dilated 34-39 ml/m2 The right atrium is normal in size. Interatrial and interventricular septum intact. There is mild aortic valve sclerosis. There is mild aortic stenosis present. Peak/mean gradient a cross the Aortic Valve is 18.79mmHg / 9.57mmHg. The mitral valve leaflets are mildly thickened. Mild mitral annular calcification present. Mild tricuspid regurgitation present. There is mild pulmonary hypertension. The right ventricular systolic pressure, as measured by Doppler, is 43.88mmHg. Trace/mild (physiologic) pulmonic regurgitation. The aortic root size is normal. Normal inferior vena cava with normal inspiratory collapse consistent with estimated right atrial pre ssure of 5 mmHg. There is no pericardial effusion. CONCLUSIONS -------- 1. Sinus rhythm. 2. This was a technically good study. 3. The left ventricular size is normal. 4. There is moderate concentric left ventricular hypertrophy. 5. Overall left ventricular systolic function is normal with, an EF between 60 - 65 %. 6. The right ventricle is mildly enlarged. 7. LA is moderately dilated 34-39 ml/m2 8. The right atrium is normal in size. 9. Interatrial and interventricular septum intact. 10. There is mild aortic valve sclerosis. 11. There is mild aortic stenosis present. 12. Peak/mean gradient across the Aortic Valve is 18.79mmHg / 9.57mmHg. 13. The mitral valve leaflets are mildly thickened. 14. Mild mitral annular calcification present. 15. Mild tricuspid regurgitation present. 16. There is mild pulmonary hypertension. 17. The right ventricular systolic pressure, as measured by Doppler, is 43.88mmHg. 18. Trace/mild (physiologic) pulmonic regurgitation. 19. The aortic root size is normal. 20. Normal inferior vena cava with normal inspiratory collapse consistent with estimated right atrial pressure of 5 mmHg. 21. There is no pericardial effusion. DATA MODELING ARCHITECT: Adriane Padgett RDCS
--- NOTE | 2019-04-09 19:52 | ECHOS ---
STRESS ECHOCARDIOGRAM DATE OF SERVICE: 04/09/2019 INDICATIONS: Chest pain. MEDICATIONS: Apresoline, Norvasc, Flomax, Cozaar, Lipitor, vitamin D3, Toprol. BASELINE HEART RATE: 83 BASELINE BLOOD PRESSURE: 154/64 MAXIMUM HEART RATE: 122 MAXIMUM BLOOD PRESSURE: 169/80 85% MPHR: 118 100% MPHR: 139 METS: MAXIMUM STAGE REACHED: 2 mcg/kg per minute. TOTAL EXERCISE TIME: 4:50 CLINICAL INFORMATION: Baseline EKG revealed normal sinus rhythm without significant ST-T changes. With dobutamine administration, heart rate went up to 120 beats per minute, which is more than 85% of predicted maximal. His resting blood pressure was 154/64 and went up to 169/80. EKG revealed upsloping nonspecific ST-segment changes. There was no evidence of any ST-segment change to indicate ischemia. There was no evidence of any significant arrhythmia. By EKG criteria, this is an unremarkable dobutamine stress test. Baseline echo images revealed normal wall motion and wall thickening. With dobutamine administration as per protocol, there was a progressive increase in contractility of all segments, suggesting that there is no evidence of any stress- induced ischemia on this study. FINAL IMPRESSION: 1. By EKG criteria, this is an unremarkable dobutamine stress test. 2. Normal dobutamine stress echocardiogram. MMODL / IJN: [id number] /
== END 2019-04-09 14:03 | disposition home or self-care (01) ==
LOC: EC 09:12 → 1SOBS 12:39
PROVIDERS: ADMIT Internal Medicine; ATTEND Internal Medicine
DX: R55 Syncope and collapse (principal); E55.9 Vitamin D deficiency, unspecified; E78.5 Hyperlipidemia, unspecified; C61 Malignant neoplasm of prostate; R07.89 Other chest pain; M46.97 Unspecified inflammatory spondylopathy, lumbosacral region; I13.10 Hypertensive heart and chronic kidney disease without heart failure, with stage 1 through stage 4 chronic kidney disease, or unspecified chronic kidney disease; N18.3 Chronic kidney disease, stage 3 (moderate); E86.0 Dehydration; E66.9 Obesity, unspecified; Z68.33 Body mass index [BMI] 33.0-33.9, adult; I73.9 Peripheral vascular disease, unspecified; I69.351 Hemiplegia and hemiparesis following cerebral infarction affecting right dominant side; I08.1 Rheumatic disorders of both mitral and tricuspid valves; D63.8 Anemia in other chronic diseases classified elsewhere; I37.1 Nonrheumatic pulmonary valve insufficiency; N40.0 Benign prostatic hyperplasia without lower urinary tract symptoms; M47.817 Spondylosis without myelopathy or radiculopathy, lumbosacral region; Z91.81 History of falling; Z79.899 Other long term (current) drug therapy; Z98.49 Cataract extraction status, unspecified eye
CPT/HCPCS: 96360; 96361; 99285; 36415; 93005; 93306; 93351; 80299; 83880; 80061; 80053; 80048; 83605; 83735; 84443; 84484; 85025 ×2; 85610; 85730; 81003; 72110; 71046; 93880; 70450; G0378 ×2; J1250

== ENCOUNTER → 2019-04-30 | Outpatient (CLI) | payer MEDICARE ==
--- NOTE | 2019-04-30 09:34 | MR ---
EXAMINATION TYPE: MR brain wo/w con DATE OF EXAM: 04/30/2019 COMPARISON: CT brain 04/08/2019 HISTORY: Unspecified abnormalities of gait and mobility TECHNIQUE: Multiplanar, multisequence images of the brain and brainstem is performed without and with IV contras t, utilizing 10 mL intravenous Gadavist . FINDINGS: Diffusion weighted images demonstrate no evidence of a recent infarct or other diffusion ab normality. There is no extra-axial fluid collection. The ventricular system and cisternal spaces ar e normal in size and appearance. There is cortical atrophy. Encephalomalacia present in the periventr icular white matter on the left with some surrounding gliosis. Confluent and scattered hyperintensiti es on T2 and inversion recovery sequences are present within the pericallosal, periventricular, sub a nd juxtacortical white matter. There are greater than 50 lesions present. There are normal vascular f low voids. Midline structures demonstrate normal morphology with exception of some thinning, some focal encephal omalacia anteriorly extending towards the right frontal white matter. The craniocervical junction ap pears within normal limits. Post contrast images demonstrate some dural enhancement which is nonspec ific. The dural venous sinuses appear patent. The visualized sinuses are clear and the globes are int act. IMPRESSION: Evidence of chronic small vessel ischemia with some encephalomalacia as described. Age-re lated atrophy. Additional nonspecific findings above.
[2019-04-30 10:25] LABS: Basophils % (A) 1 %; Eosinophils # (A) 0.1 k/uL (0-0.7); Eosinophils % (A) 3 %; HCT 38.4 % (39.0-53.0); Lymphocytes # (A) 1.1 k/uL (1.0-4.8); Lymphocytes % (A) 25 %; MCH 26.7 pg (25.0-35.0); MCHC 31.3 g/dL (31.0-37.0); MCV 85.4 fL (80.0-100.0); Mean Platelet Volume 7.5; Monocytes # (A) 0.3 k/uL (0-1.0); Monocytes % (A) 6 %; Neutrophils # (A) 2.9 k/uL (1.3-7.7); Neutrophils % (A) 64 %; Platelet Count 219 k/uL (150-450); RBC 4.49 m/uL (4.30-5.90); RDW 13.7 % (11.5-15.5); WBC 4.5 k/uL (3.8-10.6)
[2019-04-30 10:32] LABS: ALT 30 U/L (21-72); AST 24 U/L (17-59); African American GFR (CKD) 58 (>60 ml/min/1.73 sqM); Albumin 4.2 g/dL (3.5-5.0); Alkaline Phosphatase 72 U/L (38-126); Anion Gap 8 mmol/L; Blood Urea Nitrogen 23 mg/dL (9-20); Calcium 9.8 mg/dL (8.4-10.2); Carbon Dioxide 25 mmol/L (22-30); Chloride 109 mmol/L (98-107); Creatine Kinase 203 U/L (55-170); Glucose 96 mg/dL (74-99); LDH 448 U/L (313-618); Non-African American GFR(CKD) 51 (>60 ml/min/1.73 sqM); Potassium 3.6 mmol/L (3.5-5.1); Sodium 142 mmol/L (137-145); Total Bilirubin 0.3 mg/dL (0.2-1.3); Total Protein 7.1 g/dL (6.3-8.2)
[2019-04-30 10:54] LABS: C Reactive Protein <5.0 mg/L (<10.0)
[2019-04-30 12:57] LABS: Erythrocyte Sedimentation Rate 8 mm/hr (0-15)
== END | disposition home or self-care (01) ==
LOC: RADMRIMAIN 07:46
PROVIDERS: ATTEND Internal Medicine
DX: G93.89 Other specified disorders of brain (principal); G31.1 Senile degeneration of brain, not elsewhere classified; C61 Malignant neoplasm of prostate; Z88.0 Allergy status to penicillin
CPT/HCPCS: 84153; 80053; 85652; 82550; 83615; 85025; 86140; 70553; A9585

== ENCOUNTER 2019-07-04 11:39 | Inpatient (IN) | payer MEDICARE ==
[2019-07-04 12:11] LABS: Glucose,Whole Blood 108 mg/dL (75-99)
--- NOTE | 2019-07-04 12:21 | ED ---
General Adult HPI - General Chief complaint: Neuro Symptoms/Deficit Stated complaint: Numb whole body Time Seen by Provider: 07/04/19 11:45 Source: patient, RN notes reviewed Mode of arrival: ambulatory Limitations: no limitations - History of Present Illness Initial comments: This is an 79-year-old male who presents emergency Department complaining of right-sided weakness starting yesterday at about 5 PM. Patient states anytime he wanted to stand up his leg would give out it was unable to and leg. Patient states his arm was also very weak. Patient states since then he has much more strength but still finds it difficult to walk. Patient denies any blurred vision or slurred speech currently. Family is in the room and she states that he has had no surgery patient that she has noticed. She did state that when he tried to walk it seem like he was too weak in the right leg. Patient states that previous strokes of left with a slight residual deficit on the right side but is able to go about his daily functions without problem. Patient denies any recent fever chills per patient denies any palpitations chest pain difficulty breathing shortness of breath per patient denies being dizzy or lightheaded. - Related Data Home Medications Medication Instructions Recorded Confirmed Atorvastatin Calcium [Lipitor] 10 mg PO HS 04/08/19 07/04/19 Cholecalciferol [Vitamin D3 (25 5,000 unit PO DAILY 04/08/19 07/04/19 Mcg = 1000 Iu)] Losartan Potassium [Cozaar] 100 mg PO DAILY 04/08/19 07/04/19 Tamsulosin HCl [Flomax] 0.4 mg PO DAILY 04/08/19 07/04/19 amLODIPine [Norvasc] 10 mg PO HS 04/08/19 07/04/19 hydrALAZINE HCL [Apresoline] 50 mg PO TID 04/08/19 07/04/19 Furosemide [Lasix] 20 mg PO DAILY 07/04/19 07/04/19 Previous Rx's Medication Instructions Recorded Aspirin 81 mg PO DAILY chew 04/09/19 Allergies Allergy/AdvReac Type Severity Reaction Status Date / Time Penicillins Allergy Unknown Verified 07/04/19 12:53 Childhood Review of Systems ROS Statement: Those systems with pertinent positive or pertinent negative responses have been documented in the HPI. ROS Other: All systems not noted in ROS Statement are negative. Past Medical History Past Medical History: CVA/TIA, Diabetes Mellitus, Hyperlipidemia, Hypertension, Prostate Disorder, Syncope Additional Past Medical History / Comment(s): CVA with right sided weakness, multiple TIAs, prostate CA- no radiation or chem, History of Any Multi-Drug Resistant Organisms: None Reported Past Surgical History: Bowel Resection Additional Past Surgical History / Comment(s): cataract removed. right hand index and middle finger were cut off and reattached. Past Anesthesia/Blood Transfusion Reactions: No Reported Reaction Past Psychological History: No Psychological Hx Reported Smoking Status: Never smoker Past Alcohol Use History: None Reported Past Drug Use History: None Reported General Exam - General Exam Comments Initial Comments: GENERAL: Patient is well-developed and well-nourished. Patient is nontoxic and well- hydrated and is in mild distress. ENT: Neck is soft and supple. No significant lymphadenopathy is noted. Oropharynx is clear. Moist mucous membranes. Neck has full range of motion without eliciting any pain. EYES: The sclera were anicteric and conjunctiva were pink and moist. Extraocular movements were intact and pupils were equal round and reactive to light. Eyelids were unremarkable. PULMONARY: Unlabored respirations. Good breath sounds bilaterally. No audible rales rhonchi or wheezing was noted. CARDIOVASCULAR: There is a regular rate and rhythm without any murmurs gallops or rubs. ABDOMEN: Soft and nontender with normal bowel sounds. SKIN: Skin is clear with no lesions or rashes and otherwise unremarkable. NEUROLOGIC: Patient is alert and oriented x3. Cranial nerves II through XII are grossly intact. Motor and sensory are also intact. Normal speech, volume and content. Symmetrical smile. I'm unable to appreciate any objective deficit in this patient. Cerebellar function is normal bilaterally with finger to nose. MUSCULOSKELETAL: Normal extremities with adequate strength and full range of motion. No lower extremity swelling or edema. No calf tenderness. LYMPHATICS: No significant lymphadenopathy is noted PSYCHIATRIC: Normal psychiatric evaluation. Limitations: no limitations Course Vital Signs 07/04/19 07/04/19 11:44 12:30 Temperature 98.3 F Pulse Rate 75 62 Respiratory 20 16 Rate Blood Pressure 214/85 194/93 O2 Sat by Pulse 99 100 Oximetry Medical Decision Making - Medical Decision Making EKG shows normal sinus rhythm at 66 bpm DC interval is 202 QRS is 90 QT interval 428 QTC is 448. Patient's EKG shows no ST segment elevation or depression. x-ray shows no acute abnormality. CT of brain shows no acute abnormality. Patient's NIH remained 0 throughout his ED course. I spoke with Dr. Rios he agreed to admit the patient admitted the patient I consult the neurology. - Lab Data Result diagrams: 07/04/19 12:15 07/04/19 12:15 Lab Results 07/04/19 07/04/19 07/04/19 Range/Units 12:09 12:15 12:15 WBC 4.5 (3.8-10.6) k/uL RBC 4.16 L (4.30-5.90) m/uL Hgb 11.3 L (13.0-17.5) gm/dL Hct 35.8 L (39.0-53.0) % MCV 86.2 (80.0-100.0) fL MCH 27.1 (25.0-35.0) pg MCHC 31.4 (31.0-37.0) g/dL RDW 13.4 (11.5-15.5) % Plt Count 236 (150-450) k/uL Neutrophils % 53 % Lymphocytes % 36 % Monocytes % 6 % Eosinophils % 1 % Basophils % 0 % Neutrophils # 2.4 (1.3-7.7) k/uL Lymphocytes # 1.6 (1.0-4.8) k/uL Monocytes # 0.3 (0-1.0) k/uL Eosinophils # 0.1 (0-0.7) k/uL Basophils # 0.0 (0-0.2) k/uL Hypochromasia Slight PT (9.0-12.0) sec INR (<1.2) APTT (22.0-30.0) sec Sodium 141 (137-145) mmol/L Potassium 3.9 (3.5-5.1) mmol/L Chloride 109 H (98-107) mmol/L Carbon Dioxide 26 (22-30) mmol/L Anion Gap 6 mmol/L BUN 18 (9-20) mg/dL Creatinine 1.23 (0.66-1.25) mg/dL Est GFR (CKD-EPI)AfAm 64 (>60 ml/min/1.73 sqM) Est GFR (CKD-EPI)NonAf 55 (>60 ml/min/1.73 sqM) Glucose 107 H (74-99) mg/dL POC Glucose (mg/dL) 108 H (75-99) mg/dL POC Glu Driver Salesman Alli Guevara Calcium 9.6 (8.4-10.2) mg/dL Total Bilirubin 0.3 (0.2-1.3) mg/dL AST 34 (17-59) U/L ALT 20 L (21-72) U/L Alkaline Phosphatase 68 (38-126) U/L Troponin I (0.000-0.034) ng/mL Total Protein 6.8 (6.3-8.2) g/dL Albumin 3.9 (3.5-5.0) g/dL 07/04/19 07/04/19 Range/Units 12:15 12:15 WBC (3.8-10.6) k/uL RBC (4.30-5.90) m/uL Hgb (13.0-17.5) gm/dL Hct (39.0-53.0) % MCV (80.0-100.0) fL MCH (25.0-35.0) pg MCHC (31.0-37.0) g/dL RDW (11.5-15.5) % Plt Count (150-450) k/uL Neutrophils % % Lymphocytes % % Monocytes % % Eosinophils % % Basophils % % Neutrophils # (1.3-7.7) k/uL Lymphocytes # (1.0-4.8) k/uL Monocytes # (0-1.0) k/uL Eosinophils # (0-0.7) k/uL Basophils # (0-0.2) k/uL Hypochromasia PT 9.9 (9.0-12.0) sec INR 0.9 (<1.2) APTT 22.7 (22.0-30.0) sec Sodium (137-145) mmol/L Potassium (3.5-5.1) mmol/L Chloride (98-107) mmol/L Carbon Dioxide (22-30) mmol/L Anion Gap mmol/L BUN (9-20) mg/dL Creatinine (0.66-1.25) mg/dL Est GFR (CKD-EPI)AfAm (>60 ml/min/1.73 sqM) Est GFR (CKD-EPI)NonAf (>60 ml/min/1.73 sqM) Glucose (74-99) mg/dL POC Glucose (mg/dL) (75-99) mg/dL POC Glu Driver Salesman ID Calcium (8.4-10.2) mg/dL Total Bilirubin (0.2-1.3) mg/dL AST (17-59) U/L ALT (21-72) U/L Alkaline Phosphatase (38-126) U/L Troponin I <0.012 (0.000-0.034) ng/mL Total Protein (6.3-8.2) g/dL Albumin (3.5-5.0) g/dL Disposition Clinical Impression: Transient cerebral ischemia Disposition: ADMITTED IP TO THIS HOSP Referrals: Vahe Rios MD [Primary Care Provider] - 1-2 days Time of Disposition: 13:54
[2019-07-04 12:33] LABS: Basophils % (A) 0 %; Eosinophils # (A) 0.1 k/uL (0-0.7); Eosinophils % (A) 1 %; HCT 35.8 % (39.0-53.0); HGB 11.3 gm/dL (13.0-17.5); Hypochromasia Slight; Lymphocytes # (A) 1.6 k/uL (1.0-4.8); Lymphocytes % (A) 36 %; MCH 27.1 pg (25.0-35.0); MCHC 31.4 g/dL (31.0-37.0); MCV 86.2 fL (80.0-100.0); Mean Platelet Volume 5.7; Monocytes # (A) 0.3 k/uL (0-1.0); Monocytes % (A) 6 %; Neutrophils # (A) 2.4 k/uL (1.3-7.7); Neutrophils % (A) 53 %; Platelet Count 236 k/uL (150-450); RBC 4.16 m/uL (4.30-5.90); RDW 13.4 % (11.5-15.5); WBC 4.5 k/uL (3.8-10.6)
[2019-07-04 12:39] LABS: Albumin 3.9 g/dL (3.5-5.0); Calcium 9.6 mg/dL (8.4-10.2); INR 0.9 (<1.2); Partial Thromboplastin Time 22.7 sec (22.0-30.0); Potassium 3.9 mmol/L (3.5-5.1); Prothrombin Time 9.9 sec (9.0-12.0); Total Bilirubin 0.3 mg/dL (0.2-1.3); Total Protein 6.8 g/dL (6.3-8.2)
--- NOTE | 2019-07-04 13:02 | CT ---
EXAMINATION TYPE: CT brain wo con for TPA DATE OF EXAM: 07/04/2019 COMPARISON: 04/08/2019 INDICATION: headache, dizziness, Neural deficits acute stroke suspected DLP: 1113.4 mGycm, Automated exposure control for dose reduction was used. CONTRAST: None CT of the brain is performed utilizing 3 mm thick sections through the posterior fossa and 3 mm thick sections through the remaining calvarium. Study is performed within 24 hours of arrival to the hosp [facility]. No abnormal hyperdensity is present to suggest an acute intracranial hemorrhage. No mass lesion is evident. No acute infarcts are evident. There is some periventricular white matter hypodensity, likely on the basis of chronic white matter ischemic changes. An old left basal ganglion lacunar infarct is present . Ventricles and sulci are mildly prominent for the patient age. Paranasal sinuses and mastoid air cells within the [id number] are clear. IMPRESSIONS: 1. No acute intracranial process. 2. Old lacunar infarct left basal ganglion. 3. Periventricular white matter hypodensity, likely on the basis of chronic white matter ischemic amy nges.
--- NOTE | 2019-07-04 13:35 | XR ---
EXAMINATION TYPE: XR chest 2V DATE OF EXAM: 07/04/2019 COMPARISON: 04/08/2019 HISTORY: Shortness of breath TECHNIQUE: Frontal and lateral views of the chest are obtained. FINDINGS: Scattered senescent parenchymal changes noted. Hyperinflation compatible with COPD. No evidence for infiltrate. No evidence for atelectasis. Heart size is stable. Mediastinal structures are stable and grossly unremarkable. No evidence for hilar prominence. Degenerative changes dorsal spine. IMPRESSION: 1. No evidence for acute pulmonary disease.
[2019-07-04] MEDS ORDERED: ASPIRIN 325 MG TAB PO STA (13:55)
[2019-07-04] MEDS: SODIUM CHLORIDE 0.9% 1,000 ML IV SCH (14:24)
--- NOTE | 2019-07-04 15:59 | P.CNNES ---
History of Present Illness Consult date: 07/04/19 Requesting physician: Srikanth Hale Reason for Consult: TIA History of Present Illness: Patient is a 79-year-old male with history of hypertension, history of for CVA 3 years ago, with no residual deficits, states that yesterday he was working, doing his normal errands. At around 7-8 PM, he sat down to eat something. After he was done, he wanted to get up, and had to catch the wall, as he felt off-balance, "like a drunk". He couldn't stand, couldn't have judgment for the distance. He felt pins and needle sensation in the right side of the body, arm chest leg and the right facial region. He couldn't catch anything with the right arm, and had to use left arm to control. Patient did not seek medical attention. As his symptoms persisted, he He came to the ER at 11:44 AM today. Patient underwent computed tomography scan of the head, which revealed no acute process. Old lacunar infarct left basal ganglion. Periventricular white matter hypodensity, likely on the basis of chronic white matter ischemic changes. EKG showed normal sinus rhythm with LVH. Chest x-ray showed no acute process. Patient says that he does take aspirin every day, but he has run out of all his medication for the last 1 week, as there was nobody else to take him to the pharmacy for refilling prescriptions. Patient had a carotid Doppler performed 04/08/2019 for "syncope", which revealed less than 20% stenosis in both ICA. Antegrade flow in both vertebral arteries. Patient had a 2-D echo on 04/09/2019, which showed sinus rhythm, moderate concentric LVH, EF 60-65%. Left atrium is moderately dilated. Right atrium is normal in size. MRI of the brain performed 04/30/2019 showed evidence of chronic small vessel ischemia with some encephalomalacia in the periventricular white matter on the left with some surrounding gliosis. Patient's cholesterol was 166, LDL 86, HDL 71 on 04/09/2019, with normal TSH 3.69. Review of Systems As above. Numbness and tingling of right-sided the body. Denies any chest pain, shortness of breath, problem with the vision, dysphagia dysarthria. Compl ains of gait imbalance. Some arthritis. All other review of systems unremarkable. Past Medical History Past Medical History: CVA/TIA, Diabetes Mellitus, Hyperlipidemia, Hypertension, Prostate Disorder, Syncope Additional Past Medical History / Comment(s): CVA with right sided weakness, multiple TIAs, prostate CA- no radiation or chem, History of Any Multi-Drug Resistant Organisms: None Reported Past Surgical History: Bowel Resection Additional Past Surgical History / Comment(s): cataract removed. right hand index and middle finger were cut off and reattached. Past Anesthesia/Blood Transfusion Reactions: No Reported Reaction Smoking Status: Former smoker - Past Family History Mother Family Medical History: Diabetes Mellitus Father Family Medical History: Hypertension Medications and Allergies Home Medications Medication Instructions Recorded Confirmed Type Atorvastatin Calcium [Lipitor] 10 mg PO HS 04/08/19 07/04/19 History Cholecalciferol [Vitamin D3 (25 5,000 unit PO DAILY 04/08/19 07/04/19 History Mcg = 1000 Iu)] Losartan Potassium [Cozaar] 100 mg PO DAILY 04/08/19 07/04/19 History Tamsulosin HCl [Flomax] 0.4 mg PO DAILY 04/08/19 07/04/19 History amLODIPine [Norvasc] 10 mg PO HS 04/08/19 07/04/19 History hydrALAZINE HCL [Apresoline] 50 mg PO TID 04/08/19 07/04/19 History Aspirin 81 mg PO DAILY chew 04/09/19 07/04/19 Rx Furosemide [Lasix] 20 mg PO DAILY 07/04/19 07/04/19 History Allergies Allergy/AdvReac Type Severity Reaction Status Date / Time Penicillins Allergy Unknown Verified 07/04/19 12:53 Childhood Physical Examination - Vital Signs Vital Signs: Vital Signs Temp Pulse Pulse Resp BP BP Pulse Ox 07/04/19 14:55 98.0 F 79 18 177/83 99 07/04/19 14:00 60 19 174/76 99 07/04/19 13:30 56 L 16 171/81 100 07/04/19 12:30 62 16 194/93 100 07/04/19 11:44 98.3 F 75 20 214/85 99 Intake and Output 07/04/19 07/04/19 07/04/19 06:59 14:59 22:59 Other: Weight 92.986 kg On examination patient is an elderly Afro-[place] male, in no distress. Patient is alert and awake oriented to time place and person. Speech and language functions are normal. Attention and concentration fund of knowledge is adequate. On cranial examination pupils are round and reactive to light visual das are full on confrontation, extraocular muscles are intact. Face is symmetric and tongue protrudes the midline. Palatal elevation and sensation normal. On muscle strength testing there is no pronator drift and the strength is normal in arms and legs distally and proximally. Sensory touch produces paresthesias on the right side of the body. Patient has mild ataxia for [id number] on the right. Tone and bulk of muscles normal. Gait deferred. Heart auscultation showed S1 and S2 was audible. No definitive bruit. No edema. Results - Laboratory Findings CBC and BMP: 07/04/19 12:15 07/04/19 12:15 Abnormal Lab Findings: Abnormal Labs 07/04/19 07/04/19 07/04/19 12:09 12:15 12:15 RBC 4.16 L Hgb 11.3 L Hct 35.8 L Chloride 109 H Glucose 107 H POC Glucose (mg/dL) 108 H ALT 20 L Assessment and Plan Assessment: * Acute CVA, presenting with numbness and tingling of the right side of the body. Mechanism of stroke probable lacunar from small vessel disease. Localization probably to left thalamus. Patient has ran out of all his medic ations 7 days ago, which probably contributed to the CVA. * Hypertension * History of stroke 3 years ago with involvement of right side of the body, with no residual deficits. Plan: * Resume aspirin 325 mg daily. * We will add Plavix 75 mg daily for 3 months. Thereafter he can stay on monotherapy with aspirin. * MRI of the brain to localize CVA. * Patient already had carotid Doppler and 2-D echo performed 3 months ago, therefore no need to repeat these tests. * PT OT, evaluate gait. * Permissive hypertension for 24-48 hours, to prevent extension of the ischemic penumbra. * Fall precautions. * We will follow. * Thank you very much for allowing me to participate in care of the patient.
[2019-07-04] MEDS: hydrALAZINE HCL 50 MG TAB PO SCH (19:53)
[2019-07-04] MEDS: ATORVASTATIN 10 MG TAB PO SCH (19:53)
[2019-07-04] MEDS: amLODIPine 10 MG TAB PO SCH (19:53)
--- NOTE | 2019-07-04 20:27 | P.HPIM ---
History of Present Illness H&P Date: 07/04/19 (Numbness, loss of movement, right upper and lower extremities.) Chief Complaint: Complained of his upper arm and the lower leg week with numbness and tingli Dictation is from physical date of service 07/04/2019 at 7:45 PM. Patient seen in the emergency room brought by his granddaughter. Chief complaint started last night numbness of the right upper extremities and the right lower extremities with very calm like notable and he could not feel them or ambulate with them. History of present illness: 79 years old -Latvian male has been presented to the emergency room with the headache dizziness Deficit with the presence of acute stroke to the emergency room at [address] [place] [address]. They did the computed tomography scan of the brain without contrast and found that no acute intracranial process old lacunar infarction of the left basal ganglia, periventricular white matter hypodensity on the basis of chronic white matter ischemic changes. Patient also had chest x-ray was no evidence of acute pulmonary disease. Patient subsequently consulted the neurology Dr. Chadwick who did see the patient Indicating in his note carotid Doppler study 04/08/2019 for syncope revealed 20% stenosis in both internal carotid artery, antegrade flow in both vertebral art eries. He had an echocardiogram in 04/09/2019 showed sinus rhythm with moderate concentric left ventricular hypertrophy with ejection fraction 60-65% and left atrium dilated patient and the right atrium normal. The MRI on 04/30/2019 showed evidence of chronic small vessel ischemia with some encephalomalacia in the periventricular white matter on the left with some surrounding gliosis. His lipid profile indicating that cholesterol 166 total with LDL 86 and HDL 71 on 04/09/2019 and normal TSH 3.69. Assessment of the neurologist: Acute CVA, presenting with numbness and tingling of the right side of the body the stroke and lacunar from the small vessel disease, with the left thalamus. Patient ran out of his medication appears to be more than 2-3 weeks, he has a fell in the pharmacy but no family member able to pick it up for him and they are busy granddaughter. Hypertension with hypertensive heart disease and history of prior stroke more than 3 years but patient is forgetting which affected his right side still but currently without residual defect. He recommended that the patient to continue with aspirin 325 mg once a day and adding Plavix daily for 3 months and then after that continue with the therapy aspirin only and he ordered MRI of the brain for localization patient already h ad previously the carotid and the echocardiogram and he evaluated the PT and OT and the the blood pressure elevation has been permissible for 48 hour and because of to prevent the extension of ischemic bump he has had a fall precaution. Patient subsequently admitted to the hospital monitoring floor and subsequently seen by myself. Past medical history anemia he had history of atrial septal defect and the past in 2013 however the current echo did not show that in March. He had benign prostatic hypertrophy with the possibility of obstructive uropathy but also he had a carcinoma of the prostate has been biopsied and by the urology associated and indicating cancer patient refused any treatment. He had previous CVA chronic kidney disease stage III elevated PSA and the hypertension with hypertensive heart disease history of left CVA with right hemiplegia and he had the in 03/07/2014 biopsy of the prostate with adenocarcinoma of the prostate Goldie grade 4+3 equal to 7. And at that time was diagnosed by Dr. Nieto. Urologist. History of underlying degenerative osteoarthritis. Family history: Patient live alone. Drinking coffee one cup a day Children 4 sons and 4 daughter Former smoker cigarette started at the age of 13 quit smoking. . ALLERGY penicillin. Active medication #1 Flomax 0.4 mg every morning #2 vitamin D 3 5000 international unit once daily. #3 furosemide 20 mg daily #4 Lipitor 10 mg daily at at bedtime #5 hydralazine 50 mg 3 times a day #6 aspirin 325 mg once a day #7 amlodipine 10 mg once a day #8 losartan 100 mg once a day. Review of system Patient live alone complaining with the sudden onset in the evening for his numbness tingling of the right upper and lower extremities and numbness continued and he able to get hold of his grand daughter to bring him to the emergency room. Neurovascular history of stroke in the past on the left sided with a right-sided hemiplegia and hemiparesis. Currently he had also some speech disturbance and weakness in the upper and the lower extremities. There is pupil is equal reactive able to swallow and eat able to move his upper and lower extremities however they are numb and he has weakness more pronounced on the right side of the of the has body Heart no chest pain or palpitation, hypertension with hypertensive heart disease. Respiratory no cough or expectoration. Musculoskeletal he had advanced degen erative osteoarthritis. Genitourinary he feeling that he wants to urinate but he could not completely urinate and incomplete his bladder emptying. With the enlarged prostate and prostatic cancer. Hematologically he had anemia probable of chronic disease. GI no nausea or vomiting or diarrhea. Endocrine no diabetes no thyroid disease, hyperlipidemia Rest of the review of system was normal. Physical exam: On admission his vital sign temperature 90.8 F oral and his pulse rate was 79/m regular respiratory rate 18 and blood pressure was 177/83 and pulse ox was 99% on room air. His weight 92.98 kg approximately. 79 years old -Latvian elderly male awake alert oriented he had some slurred speech and he is oriented to place and person. He able to describe his symptoms clearly. The head was normocephalic and atraumatic pupil was equal reactive and conjunctiva was pink, sclera nonicteric oropharynx able to eat and swallow however he had decayed and dental caries. Hearing is normal. Neck was supple no JVD no thyromegaly no lymphadenopathy and no carotid bruits Chest was clear to auscultation and percussion no wheezes no rhonchi's. Heart regular sinus rhythm no dysrhythmia. Abdomen soft nontender positive bowel sounds however there is fullness suprapubic with the feeling that he wants to urinate but he is unable to do so was possibly the urinary retention were dry BladderScan and subsequently Tee catheter versus straight cath with the underlying benign prostatic hypertrophy and prostate cancer. Extremities no edema and positive pulses. He has decrease motor power in the right and lower extremities with normal muscle bulk and tone. Neurologically: Slurred speech with the acute CVA of the left sided with the right exacerbation of hemiparesis. Assessment and plan: Will continue current recommendation of Dr. Joshua on the neurologist with aspirin 325 mg once a day and Plavix 75 mg daily. PT and OT MRI of the brain tomorrow for further treatment depending on the results, Dr. Chadwick will see him tomorrow as well. Resuming his medication that he has been trying underlying out of it for more than a week or 3 weeks unknown. We tried in the office to contact to the patient but no phone number and no address to contact the patient. We'll ask the social media assistant and data recovery planner for the future planning of a pharmacy that can deliver the medicine to the patient at home. Continue current medication. And the lab in a.m. Past Medical History Past Medical History: CVA/TIA, Diabetes Mellitus, Hyperlipidemia, Hypertension, Prostate Disorder, Syncope Additional Past Medical History / Comment(s): CVA with right sided weakness, multiple TIAs, prostate CA- no radiation or chem, History of Any Multi-Drug Resistant Organisms: None Reported Past Surgical History: Bowel Resection Additional Past Surgical History / Comment(s): cataract removed. right hand index and middle finger were cut off and reattached. Past Anesthesia/Blood Transfusion Reactions: No Reported Reaction Smoking Status: Former smoker - Past Family History Mother Family Medical History: Diabetes Mellitus Father Family Medical History: Hypertension Medications and Allergies Home Medications Medication Instructions Recorded Confirmed Type Atorvastatin Calcium [Lipitor] 10 mg PO HS 04/08/19 07/04/19 History Cholecalciferol [Vitamin D3 (25 5,000 unit PO DAILY 04/08/19 07/04/19 History Mcg = 1000 Iu)] Losartan Potassium [Cozaar] 100 mg PO DAILY 04/08/19 07/04/19 History Tamsulosin HCl [Flomax] 0.4 mg PO DAILY 04/08/19 07/04/19 History amLODIPine [Norvasc] 10 mg PO HS 04/08/19 07/04/19 History hydrALAZINE HCL [Apresoline] 50 mg PO TID 04/08/19 07/04/19 History Aspirin 81 mg PO DAILY chew 04/09/19 07/04/19 Rx Furosemide [Lasix] 20 mg PO DAILY 07/04/19 07/04/19 History Allergies Allergy/AdvReac Type Severity Reaction Status Date / Time Penicillins Allergy Unknown Verified 07/04/19 12:53 Childhood Physical Exam Vitals: Vital Signs Temp Pulse Pulse Resp BP BP Pulse Ox 07/04/19 19:44 98.3 F 74 18 165/71 99 07/04/19 15:59 79 18 07/04/19 14:55 98.0 F 79 18 177/83 99 07/04/19 14:00 60 19 174/76 99 07/04/19 13:30 56 L 16 171/81 100 07/04/19 12:30 62 16 194/93 100 07/04/19 11:44 98.3 F 75 20 214/85 99 Intake and Output 07/04/19 07/04/19 07/04/19 06:59 14:59 22:59 Intake Total 240 Balance 240 Intake: Oral 240 Other: Voiding Method Toilet Urinal # Voids 1 Weight 92.986 kg Results CBC & Chem 7: 07/04/19 12:15 07/04/19 12:15 Labs: Abnormal Lab Results - Last 24 Hours (Table) 07/04/19 07/04/19 07/04/19 Range/Units 12:09 12:15 12:15 RBC 4.16 L (4.30-5.90) m/uL Hgb 11.3 L (13.0-17.5) gm/dL Hct 35.8 L (39.0-53.0) % Chloride 109 H (98-107) mmol/L Glucose 107 H (74-99) mg/dL POC Glucose (mg/dL) 108 H (75-99) mg/dL ALT 20 L (21-72) U/L Thrombosis Risk Factor Assmnt - Choose All That Apply Any of the Below Risk Factors Present?: Yes Each Factor Represents 1 point: Obesity (BMI >25) Other Risk Factors: Yes Each Risk Factor Represents 3 Points: Age 75 years or older Other congenital or acquired thrombophilia - If yes, enter type in comment: No Thrombosis Risk Factor Assessment Total Risk Factor Score: 4 Thrombosis Risk Factor Assessment Level: Moderate Risk
[2019-07-05 04:10] LABS: Hemoglobin A1C 5.4 % (4.0-6.0)
[2019-07-05] MEDS: SODIUM CHLORIDE 0.9% 1,000 ML IV SCH ×3 (04:28→21:14)
[2019-07-05] MEDS: ACETAMINOPHEN TAB 325 MG TAB PO PRN (04:31)
[2019-07-05 07:04] LABS: Glucose,Whole Blood 102 mg/dL (75-99)
--- NOTE | 2019-07-05 07:09 | MR ---
EXAMINATION TYPE: MR brain wo con DATE OF EXAM: 07/05/2019 COMPARISON: CT scan yesterday HISTORY: CVA Standard multiplanar, multisequence MRI departmental protocol Multiplanar, multisequence images of the brain were acquired. Diffusion weighted imaging was performe d. FINDINGS: There is cerebral cortical atrophy. There is no mass effect nor midline shift. On the diffu ole images there are are small foci of increased signal in the posterior left thalamus consistent wi th acute infarct. There is no evidence of acute cortical infarct. There is thinning of the corpus ulises losum. There is a 15 x 8 mm area of increased signal on the T2 and FLAIR images in the genu of the le ft internal capsule consistent with old lacunar infarct. There is no evidence of intracranial hemorrh age. There are scattered foci of increased signal in the periventricular white matter on the T2 and FLAIR images that measure up to 8 mm consistent with chronic small vessel ischemia. Some of these are coale scent. Total number of lesions is approximately 25. The brainstem is intact. Cerebellum is intact. IMPRESSION: Old left internal capsule lacunar infarct. Diffuse white matter changes consistent with chronic small vessel ischemia. There is evidence for small acute lacunar infarcts in the posterior left thalamus. No significant change compared to CT scan yesterday.
[2019-07-05 07:16] LABS: Basophils # (A) 0.1 k/uL (0-0.2); Basophils % (A) 1 %; Eosinophils # (A) 0.1 k/uL (0-0.7); Eosinophils % (A) 2 %; HCT 36.4 % (39.0-53.0); HGB 11.5 gm/dL (13.0-17.5); Hypochromasia Slight; Lymphocytes # (A) 1.3 k/uL (1.0-4.8); Lymphocytes % (A) 24 %; MCH 27.3 pg (25.0-35.0); MCHC 31.5 g/dL (31.0-37.0); MCV 86.9 fL (80.0-100.0); Mean Platelet Volume 6.6; Monocytes # (A) 0.4 k/uL (0-1.0); Monocytes % (A) 7 %; Neutrophils # (A) 3.6 k/uL (1.3-7.7); Neutrophils % (A) 65 %; Platelet Count 251 k/uL (150-450); RBC 4.19 m/uL (4.30-5.90); RDW 13.5 % (11.5-15.5); WBC 5.6 k/uL (3.8-10.6)
[2019-07-05 07:29] LABS: Calcium 9.3 mg/dL (8.4-10.2); Potassium 3.8 mmol/L (3.5-5.1)
[2019-07-05] MEDS: LOSARTAN 50 MG TAB PO SCH (08:52)
[2019-07-05] MEDS: CLOPIDOGREL 75 MG TAB PO SCH (08:52)
[2019-07-05] MEDS: FUROSEMIDE 20 MG TAB PO SCH (08:52)
[2019-07-05] MEDS: hydrALAZINE HCL 50 MG TAB PO SCH ×3 (08:52→21:13)
[2019-07-05] MEDS: CHOLECALCIFEROL 1,000 UNIT TAB PO SCH (08:52)
[2019-07-05] MEDS: TAMSULOSIN 0.4 MG CAP.ER.24H PO SCH (08:52)
[2019-07-05] MEDS ORDERED: ASPIRIN 81 MG PO SCH (09:00)
[2019-07-05] MEDS ORDERED: ASPIRIN 325 MG TAB PO SCH ×2 (09:00→12:00)
--- NOTE | 2019-07-05 12:27 | P.PN ---
Subjective Progress Note Date: 07/05/19 79-year-old male admitted with acute onset of numbness of the entire right side of the body. Patient has stopped taking medication for 7 days as he was not able to get his prescriptions including aspirin. Patient underwent MRI of the brain, which revealed evidence of acute ischemic infarction involving the posterior left thalamus. Old left internal capsular lacunar infarct. Diffuse white matter changes consistent with chronic small vessel ischemia. Patient's blood test shows hemoglobin A1c 5.4. Cholesterol 155, LDL 88, HDL 59 and triglycerides 42. CBC with WBC 5.6 hemoglobin 11.5 and platelets 251. PT/PTT is normal. Objective - Vital Signs Vital signs: Vital Signs Temp 97.7 F 07/05/19 08:00 Pulse 76 07/05/19 08:00 Resp 20 07/05/19 08:00 BP 173/69 07/05/19 08:00 Pulse Ox 99 07/05/19 08:00 Intake & Output 07/04/19 07/05/19 07/05/19 18:59 06:59 18:59 Intake Total 240 300 360 Output Total 2200 700 Balance 240 -1900 -340 Weight 92.986 kg 82.6 kg Intake: Intake, IV Titration 300 Amount Sodium Chloride 0.9% 1, 300 000 ml @ 100 mls/hr IV . Q10H [facility] Rx#:[id number] Oral 240 360 Output: Urine 2200 700 Other: Voiding Method Toilet Toilet Urinal Urinal # Voids 1 - Exam On examination patient is an elderly Afro-[place] male, in no distress. His mental status, speech and language functions appears normal. On cranial nerve examination his pupils are round and reacting to light visual das are full. Face is symmetric and tongue protrudes the midline. Palatal elevation and sensation normal. On muscle strength testing there is no pronator drift and the strength is still normal in arms and legs distally and proximally including detailed testing of the right side. Sensation still produces some paresthesias on the right side although patient states better than yesterday. Patient has mild dysmetria for [id number] testing on the right. Tone and bulk of muscle s normal. - Labs CBC & Chem 7: 07/05/19 05:49 07/05/19 05:49 Labs: Abnormal Lab Results - Last 24 Hours (Table) 07/04/19 07/04/19 07/04/19 Range/Units 12:09 12:15 12:15 RBC 4.16 L (4.30-5.90) m/uL Hgb 11.3 L (13.0-17.5) gm/dL Hct 35.8 L (39.0-53.0) % Chloride 109 H (98-107) mmol/L Glucose 107 H (74-99) mg/dL POC Glucose (mg/dL) 108 H (75-99) mg/dL ALT 20 L (21-72) U/L 07/05/19 07/05/19 07/05/19 Range/Units 05:49 05:49 07:00 RBC 4.19 L (4.30-5.90) m/uL Hgb 11.5 L (13.0-17.5) gm/dL Hct 36.4 L (39.0-53.0) % Chloride 109 H (98-107) mmol/L Glucose (74-99) mg/dL POC Glucose (mg/dL) 102 H (75-99) mg/dL ALT (21-72) U/L Assessment and Plan Assessment: * Acute CVA, left thalamic region, presenting with numbness and tingling of the right side of the body. Mechanism of stroke probable lacunar from small vessel disease. Patient has ran out of all his medications 7 days ago including aspirin, which probably contributed to the CVA. * Hypertension * History of stroke 3 years ago with involvement of right side of the body, with no residual deficits. Plan: * Continue aspirin and Plavix 75 mg daily. We will change aspirin to 81 mg daily, to prevent hemorrhagic risks. * MRI of the brain confirmed left thalamic CVA, likely a lacunar stroke. * Patient already had carotid Doppler and 2-D echo performed 3 months ago, therefore no need to repeat these tests. As the strokes are recurring on the left side, therefore we will check CTA of head and neck, to rule out intracranial atherosclerotic disease. May consider ADOLFO. * PT OT, evaluate gait. * Patient is back on his home medication list. Suggest not to add or increase blood pressure medications for another 24 hours. * Fall precautions. * Suggest consultation with physical medicine and rehabilitation for possible transfer to inpatient rehab. * Neurology coverage not available on the weekend.
--- NOTE | 2019-07-05 14:10 | P.CONS ---
History of Present Illness - Chief Complaint Gait disturbance - History of Present Illness I had the opportunity to see patient for inpatient rehab consultation with regard to gait disturbance. He was admitted to [facility] last night acute onset right-sided weakness and not feeling right. Seen by Dr. Chadwick for the stroke. Chest x-ray negative. Head CT demonstrates old left basal ganglia infarct and w matt matter change. Brain MRI demonstrates old internal capsule infarct and chronic change. PT reports supervision for transfers and gait 200 feet with small-based quad cane. OT reports supervision for upper/lower dressing, bathing and mobility. Speech therapy reports abstract thinking within normal limits. Previous functional history as elicited from patient corroborative by daughter: 79-year-old right-handed male who is lives in one floor home alone. Retired. A granddaughter assist with laundry. Patient dependent with own cooking. He depends on family for driving. Patient can with standing shower and gait without device. Dr. Rios his regular doctor. Note that I talked to daughter who does not live in area. She reports that there is the granddaughter as well as a son in the area. Denies tobacco or alcohol. Family history father with hypertension in mother with diabetes. Review of Systems Review of systems: ENT: Denies sneezes or discharge. Reports funny sensations within the right side of the mouth. Eyes: Denies discharge or photophobia. Cardiac: Denies chest pain or palpitation. Pulmonary: Denies cough or shortness of breath. Gastrointestinal: Denies nausea, emesis, constipation, diarrhea. Genitourinary: Denies discharge or frequency. Musculoskeletal: Denies muscle or bone aches. Neurologic: Numbness throughout the right side as well as mild weakness in the right hand. Describes apraxia right side. Endocrine: Denies shakes or sweats. Oncology: Denies cancers. Dermatologic: Denies rash, itching, pruritus. ALLERGY/immunology: Denies sneezes, rashes. Past Medical History Past Medical History: CVA/TIA, Diabetes Mellitus, Hyperlipidemia, Hypertension, Prostate Disorder, Syncope Additional Past Medical History / Comment(s): CVA with right sided weakness, multiple TIAs, prostate CA- no radiation or chem, History of Any Multi-Drug Resistant Organisms: None Reported Past Surgical History: Bowel Resection Additional Past Surgical History / Comment(s): cataract removed. right hand index and middle finger were cut off and reattached. Past Anesthesia/Blood Transfusion Reactions: No Reported Reaction Smoking Status: Former smoker - Past Family History Mother Family Medical History: Diabetes Mellitus Father Family Medical History: Hypertension Medications and Allergies Home Medications Medication Instructions Recorded Confirmed Type Atorvastatin Calcium [Lipitor] 10 mg PO HS 04/08/19 07/04/19 History Cholecalciferol [Vitamin D3 (25 5,000 unit PO DAILY 04/08/19 07/04/19 History Mcg = 1000 Iu)] Losartan Potassium [Cozaar] 100 mg PO DAILY 04/08/19 07/04/19 History Tamsulosin HCl [Flomax] 0.4 mg PO DAILY 04/08/19 07/04/19 History amLODIPine [Norvasc] 10 mg PO HS 04/08/19 07/04/19 History hydrALAZINE HCL [Apresoline] 50 mg PO TID 04/08/19 07/04/19 History Aspirin 81 mg PO DAILY chew 04/09/19 07/04/19 Rx Furosemide [Lasix] 20 mg PO DAILY 07/04/19 07/04/19 History Allergies Allergy/AdvReac Type Severity Reaction Status Date / Time Penicillins Allergy Unknown Verified 07/04/19 12:53 Childhood Physical Exam Vitals: Vital Signs Temp Pulse Resp BP Pulse Ox 07/05/19 12:00 83 18 163/76 99 07/05/19 08:00 97.7 F 76 20 173/69 99 07/05/19 04:00 98.2 F 89 18 187/77 99 07/05/19 00:00 97.8 F 82 17 156/76 99 07/04/19 19:44 98.3 F 74 18 165/71 99 07/04/19 15:59 79 18 07/04/19 14:55 98.0 F 79 18 177/83 99 Intake and Output 07/04/19 07/05/19 07/05/19 22:59 06:59 14:59 Intake Total 540 360 Output Total 350 1850 700 Balance 190 -1850 -340 Intake: Intake, IV Titration 300 Amount Sodium Chloride 0.9% 1, 300 000 ml @ 100 mls/hr IV . Q10H [facility] Rx#:[id number] Oral 240 360 Output: Urine 350 1850 700 Other: Voiding Method Toilet Toilet Urinal Urinal Weight 82.6 kg Skin: Good color, texture, turgor. General: Medium build and comfortable appearance. Head: Normocephalic, atraumatic. Eyes: Symmetric. Pupils equal round. Ears: Symmetric. Hearing within normal limits. Mouth: Clear. Neck: Supple. Carotid without bruit. Cardiac: Regular rate and rhythm. Lungs: Clear anteriorly and posteriorly. Abdomen: Soft active nontender. Extremities: Normal tone. Neurological: Mental status: Alert, cooperative, pleasant. Speech intelligible and no word finding deficits noted. Cranial nerves: Symmetric facial tone and trapezius. Motor: Normal strength and isolation all 4 limbs except mild weakness right hand . Sensation: Intact throughout. DTRs: Symmetric and equal throughout. Mobility: Sits and stands without assistance or verbal cueing or loss of balance from Germaine chair. Results CBC & Chem 7: 07/05/19 05:49 07/05/19 05:49 Labs: Abnormal Lab Results - Last 24 Hours (Table) 07/05/19 07/05/19 07/05/19 Range/Units 05:49 05:49 07:00 RBC 4.19 L (4.30-5.90) m/uL Hgb 11.5 L (13.0-17.5) gm/dL Hct 36.4 L (39.0-53.0) % Chloride 109 H (98-107) mmol/L POC Glucose (mg/dL) 102 H (75-99) mg/dL Assessment and Plan (1) CVA (cerebral vascular accident) Current Visit: Yes Status: Acute Code(s): I63.9 - CEREBRAL INFARCTION, UNSPECIFIED SNOMED Code(s): 424169820 Plan: Impression: 1. Gait disturbance. 2. Stroke with right hemiparesthesias. History of 2 previous strokes. 3. Hypertension. 4. Dyslipidemia. 5. Diabetes. Comments and plan: At this time PT, OT, STAB SETTER AND DRILLER ongoing. Patient doing quite well. His main problem is that he lives alone. workers' compensation hearings officer reports that in fact he was chopping his own wood for heat. Daughter who was present discussed that a son and granddaughter live in the area and it would be only family support locally. We'll plan to review patient's we can progress, Monday a.m. At this time. Patient is doing well and may in fact be too good for inpatient rehab.
--- NOTE | 2019-07-05 15:39 | CT ---
EXAMINATION TYPE: CT angio head neck DATE OF EXAM: 07/05/2019 COMPARISON: HISTORY: Acute CVA. CT DLP: 508.5 mGycm CONTRAST: Performed with IV Contrast, patient injected with 65 mL of Isovue 370. Combination Contrast CTA cervical carotids and [place] CTA cervical carotids with 3-D recons truction Contrast CTA of the cervical carotids was performed 3-D reconstruction imaging obtained at a separate workstation. Right carotid system: Mild plaque is seen of the right common carotid artery. There is mild plaque a lso noted at the carotid bulb and proximal ICA. No significant diameter reduction. ECA is patent. Right vertebral artery appears unremarkable. Left carotid system: Mild plaque is seen of the left common carotid artery. There is mild plaque als o noted at the carotid bulb and proximal ICA. No significant diameter reduction. ECA is patent. Lef t vertebral artery appears unremarkable. IMPRESSION: 1. No significant diameter reduction to account for the patient's symptoms. CTA [place] with 3-D reconstruction Contrast CTA of the [place] was performed 3-D reconstruction imaging obtained at a separate workstation. Vertebrobasilar system as well as intracranial portions of the internal carotid arteries and their ma silvia tributaries are patent. I do not see evidence for sizable aneurysm or vascular malformation. Pl ease note MRI provides greater sensitivity and specificity. Visualized brain appears grossly unremar kable. IMPRESSION: 1. No significant abnormality.
[2019-07-05 17:27] LABS: Glucose,Whole Blood 110 mg/dL (75-99)
--- NOTE | 2019-07-05 18:43 | ECHOF ---
Referral Reason:CVA MEASUREMENTS -------- HEIGHT: 172.7 cm WEIGHT: 82.6 kg BP: 173/69 IVSd: 1.6 cm (0.6 - 1.1) LVIDd: 3.8 cm (3.9 - 5.3) LVPWd: 1.5 cm (0.6 - 1.1) IVSs: 2.1 cm LVIDs: 2.9 cm LVPWs: 2.4 cm FINDINGS -------- Sinus rhythm. Limited Study The left ventricular size is normal. There is moderate concentric left ventricular hypertrophy. O verall left ventricular systolic function is normal with, an EF between 55 - 60 %. Contrast study was performed with 2 iv injections of 8 ccs of agitated normal saline, at rest, and wi th cough. Interatrial and interventricular septum intact. CONCLUSIONS -------- 1. Sinus rhythm. 2. Limited Study 3. The left ventricular size is normal. 4. There is moderate concentric left ventricular hypertrophy. 5. Overall left ventricular systolic function is normal with, an EF between 55 - 60 %. 6. Contrast study was performed with 2 iv injections of 8 ccs of agitated normal saline, at rest, and with cough. 7. Interatrial and interventricular septum intact. WHITTLING ROOM OPERATOR: Irene Ann RDCS
[2019-07-05 21:03] LABS: Glucose,Whole Blood 155 mg/dL (75-99)
[2019-07-05] MEDS: amLODIPine 10 MG TAB PO SCH (21:13)
--- NOTE | 2019-07-05 21:13 | PN ---
PROGRESS NOTE DATE OF SERVICE: 07/05/2019 He is a FULL CODE. Age 79-year-old male. DATA: Height 5 feet 8 inches, weight 82.6 kg. His BSA 1.96 m2, BMI 27.7 kg/m2. ALLERGY: PENICILLIN. The patient seen, evaluated and he had underwent an MRI today and MRI was indicating left internal capsule lacunar infarcts, diffuse white matter changes and consistent with chronic small vessel disease and this is evidence of small acute lacunar infarction in the posterior left thalamus and the same the MRI and meanwhile Dr. Sarah Beth Chadwick the neurologist has seen the patient, evaluated, and he recommended to have a ADOLFO for evaluation of the PFO with the underlying reason of the stroke unclear. The patient had echocardiogram today, however, was not ADOLFO and was done by read by Dr. Zaragoza and showed that ejection fraction is 55-60 with moderate concentric left ventricular hypertrophy and he did inject 8 cm agitated normal saline. He stated here that in his note he she had the patient had moderate concentric left ventricular hypertrophy and the sinus rhythm and left overall function was 55-60 and a contrast study performed with IV injection of 8 mL of agitated normal saline and at rest with cough. However, the intraatrial and interventricular septum was intact. The patient also has been as seen by the neurologist. He did recommend inpatient rehabilitation and we did consult Dr. Roper, the gameroom technician, for that reason, and Dr. Roper indicating that the patient had gait disturbance, stroke with right hemiparesis, hypertension, dyslipidemia, diabetes, and at this time he ordered PT, OT and speech therapy and he discussed it with the daughter and he stated that he is stating the patient doing well and may in fact be too good to be inpatient rehab and he planned to be reviewed again. Currently patient complains of headache and his current vital sign for that progress note today on July 05, 2019, his temperature 98.1 orally and the pulse rate is 83, respiratory rate 16, blood pressure 141/67 with a mean arterial pressure 91 and his room air was 99% oxygen saturation. LABORATORY DATA: His underlying laboratory was indicating that today his white count 5.6 with hemoglobin 11.5 and hematocrit 36.4, and his platelet count is normal 251. His sodium 142, potassium 3.8, and chloride 109. His carbon dioxide 27, his anion gap 6 and BUN 14 and creatinine 1.2 with the EGFR 65. He had glucose 88, and he has been monitored his blood sugar, which was no need for any intervention or insulin. His calcium was 9.3 with a hemoglobin A1c 5.4. No evidence of diabetes. He has liver enzymes within normal limit and the troponin was less than 0.012. His lipid profile also was obtained and he has a triglyceride 42, total cholesterol 155, LDL 88, and HDL 59. PHYSICAL EXAM: The patient is conscious, alert, but he complaining of headache. HEENT was negative. He had decayed tooth in the oropharynx and able to eat and swallow. Neck was supple. No JVD. No thyromegaly. No lymphadenopathy. Trachea midline. The chest was clear to auscultation and percussion. The heart was regular sinus rhythm and no dysrhythmia. The abdomen was soft with positive bowel sounds. EXTREMITIES: No edema. He had still the numbness of the right side with left side stroke and numbness and tingling and feeling still weak. ASSESSMENT: 1. Acute cerebrovascular accident in the left posterior thalamus, new stroke with weakness and numbness in the exacerbation of the right upper and lower extremities and he is on rehab at this time. Today his complaint that he has no fever, but chills and shaking and chills and we ordered the blood culture x2. 2. Headache and we will be starting him on Toradol versus Ultram 1 tablet every 6 hours p.r.n. to relieve the headache. Otherwise, we are going to use Fioricet. For the time being we will start on the Toradol 1st and subsequent evaluate if he has relief or not. MMODL / IJN: [id number] /
[2019-07-05] MEDS: ATORVASTATIN 10 MG TAB PO SCH (21:14)
[2019-07-05] MEDS: KETOROLAC 30 MG/ML 1 ML VIAL IVP PRN (21:14)
[2019-07-06] MEDS ORDERED: KETOROLAC 30 MG/ML 1 ML VIAL IVP SCH
[2019-07-06 06:24] LABS: Glucose,Whole Blood 103 mg/dL (75-99)
[2019-07-06] MEDS: SODIUM CHLORIDE 0.9% 1,000 ML IV SCH (06:33)
[2019-07-06] MEDS: KETOROLAC 30 MG/ML 1 ML VIAL IVP PRN (06:33)
[2019-07-06] MEDS: FUROSEMIDE 20 MG TAB PO SCH (08:48)
[2019-07-06] MEDS: LOSARTAN 50 MG TAB PO SCH (08:48)
[2019-07-06] MEDS: hydrALAZINE HCL 50 MG TAB PO SCH ×3 (08:48→20:52)
[2019-07-06] MEDS: TAMSULOSIN 0.4 MG CAP.ER.24H PO SCH (08:48)
[2019-07-06] MEDS: CHOLECALCIFEROL 1,000 UNIT TAB PO SCH (08:48)
[2019-07-06] MEDS: ASPIRIN 81 MG PO SCH (08:48)
[2019-07-06] MEDS: CLOPIDOGREL 75 MG TAB PO SCH (08:48)
[2019-07-06 11:59] LABS: Glucose,Whole Blood 222 mg/dL (75-99)
--- NOTE | 2019-07-06 13:06 | P.GSCN ---
History of Present Illness Consult date: 07/06/19 Reason for Consult: Urinary retention Requesting physician: Vahe Rios History of present illness: The patient is an 79-year-old -Romanian male admitted with acute onset of right-sided weakness. He has been diagnosed with an acute stroke. He currently has an indwelling Tee catheter for urinary retention. He sustained a prior stroke approximately 3 years ago, and developed urinary retention following that event. He regained the ability to void, but states that he has recently experienced dysuria. He is unfortunately a vague historian, but reports that he takes tamsulosin daily. Review of Systems - Constitutional Reports weakness - Genitourinary Reports dysuria, Denies hematuria Past Medical History Past Medical History: CVA/TIA, Diabetes Mellitus, Hyperlipidemia, Hypertension, Prostate Disorder, Syncope Additional Past Medical History / Comment(s): CVA with right sided weakness, multiple TIAs, prostate CA- no radiation or chem, History of Any Multi-Drug Resistant Organisms: None Reported Past Surgical History: Bowel Resection Additional Past Surgical History / Comment(s): cataract removed. right hand index and middle finger were cut off and reattached. Past Anesthesia/Blood Transfusion Reactions: No Reported Reaction Smoking Status: Former smoker - Past Family History Mother Family Medical History: Diabetes Mellitus Father Family Medical History: Hypertension Medications and Allergies Home Medications Medication Instructions Recorded Confirmed Type Atorvastatin Calcium [Lipitor] 10 mg PO HS 04/08/19 07/04/19 History Cholecalciferol [Vitamin D3 (25 5,000 unit PO DAILY 04/08/19 07/04/19 History Mcg = 1000 Iu)] Losartan Potassium [Cozaar] 100 mg PO DAILY 04/08/19 07/04/19 History Tamsulosin HCl [Flomax] 0.4 mg PO DAILY 04/08/19 07/04/19 History amLODIPine [Norvasc] 10 mg PO HS 04/08/19 07/04/19 History hydrALAZINE HCL [Apresoline] 50 mg PO TID 04/08/19 07/04/19 History Aspirin 81 mg PO DAILY chew 04/09/19 07/04/19 Rx Furosemide [Lasix] 20 mg PO DAILY 07/04/19 07/04/19 History Allergies Allergy/AdvReac Type Severity Reaction Status Date / Time Penicillins Allergy Unknown Verified 07/04/19 12:53 Childhood Surgical - Exam Vital Signs Temp Pulse Resp BP Pulse Ox 98.3 F 75 20 214/85 99 07/04/19 11:44 07/04/19 11:44 07/04/19 11:44 07/04/19 11:44 07/04/19 11:44 - General well developed, well nourished, no distress - Respiratory normal respiratory effort - Abdomen Abdomen: soft, non tender, no guarding, no rigid, no rebound - Genitourinary normal penis with no external lesions, testicles non-tender - Rectum Normal sphincter tone, no rectal masses. The prostate is moderately enlarged, firm in consistency, with left-sided nodularity. - Psychiatric oriented to time, oriented to person, oriented to place, speech is normal, memory intact Results - Labs 07/05/19 05:49 07/05/19 05:49 Abnormal Lab Results - Last 24 Hours (Table) 07/05/19 07/05/19 07/06/19 Range/Units 17:23 21:02 06:22 POC Glucose (mg/dL) 110 H 155 H 103 H (75-99) mg/dL Assessment and Plan (1) Urinary retention Current Visit: Yes Status: Acute Code(s): R33.9 - RETENTION OF URINE, UNSP ECIFIED SNOMED Code(s): 839959214 Plan: Urinary retention is common following an acute CVA, due to an atonic bladder. This may persist up to 60 days. He continues to receive tamsulosin, and it would certainly be reasonable to repeat a voiding trial within the next several days. KEELEY reveals left-sided nodularity, suspicious for prostate cancer. A PSA level will be checked in view of this. Time with Patient: Greater than 30
--- NOTE | 2019-07-06 13:08 | P.PN ---
Subjective Progress Note Date: 07/06/19 Principal diagnosis: Acute CVA in the left hemispheric posterior thalamus, with the feeling of numbness of the right side of the upper extremities and the lower extremities and spinning the multiple. Transthoracic echocardiogram with the multiple was negative for PFO however if n eurology once the ADOLFO, we will order it as discussed with Dr. Mejia airborne operations manager. Urinary retention for more than 450 mL of urine and a Tee cath was placed and seen by Dr. lizama urologist, with the recommendation to leave the catheter in place. Patient has lost night shaking chills with no temperature, blood culture was obtained result in progress. Enlargement of the prostate, prostatic cancer, refusal of treatment for the CTA of the prostate. Hypertension and the hypertensive heart disease currently controlled 139/73 blood pressure today. History of previous CVA few years and the past mentioned 3 years I felt that that may be more than left. This is a progress note date of service 07/06/2019. Patient seen and evaluated discussed with them the plan. And patient understand that he will be staying through the weekend, and will be seen again by the neurologist with the question if they are satisfied with the transthoracic echo with the probable which was negative for PFO. OR would like to have ADOLFO to be done by airborne operations manager. Urinary retention with the Tee catheter was placed, patient was felt prior to the catheter that he wants to urinate but could not urinate with the obstructive symptom. Vital signs today stable with temperature 97.7 F oral his heart rate is 87 per minute regular sinus respiratory rate 18/m, blood pressure 139/73, pulse ox 99%. Patient complains still of the numbness of the right upper and the lower extremities without difficulty of medical tests or move his legs, and he still needed the physical therapy and he will be staying until Monday. In regard of glucose which has been monitored and his blood sugar has been controlled through the hospitalization however he had only one reading today at 1145 that his blood glucose 222 and we will not be concerned until we see the trend is continuous 20 elevated blood sugar because of a hemoglobin A1c was 5.4 and was normal. On exam head was normocephalic and atraumatic. Pupils equal reactive. Conj unctiva was pink sclerae nonicteric. Oropharynx was decayed teeth of abnormal no facial deviation Neck was supple no JVD no thyromegaly. Chest was clear to auscultation and percussion. Heart was regular sinus rhythm. Abdomen was soft positive bowel sounds no tenderness and extremities no edema. Still in the rehab and questionable if he able to ambulate are not still in the progress of training. Assessment continue the current treatment and I will see him tomorrow and follow-up and continue the Tee catheter. Plan we'll continue the above treatment. Objective - Vital Signs Vital signs: Vital Signs Temp 97.7 F 07/06/19 08:00 Pulse 87 07/06/19 08:00 Resp 18 07/06/19 08:00 BP 139/73 07/06/19 08:00 Pulse Ox 99 07/06/19 08:00 Intake & Output 07/05/19 07/06/19 07/06/19 18:59 06:59 18:59 Intake Total 1160 240 Output Total 700 900 Balance 460 -900 240 Weight 84.3 kg Intake: IV 800 Sodium Chloride 0.9% 1, 800 000 ml @ 100 mls/hr IV . Q10H [facility] Rx#:[id number] Oral 360 240 Output: Urine 700 900 Other: Voiding Method Indwelling Catheter Indwelling Catheter Indwelling Catheter # Voids 1 - Labs CBC & Chem 7: 07/05/19 05:49 07/05/19 05:49 Labs: Abnormal Lab Results - Last 24 Hours (Table) 07/05/19 07/05/19 07/06/19 Range/Units 17:23 21:02 06:22 POC Glucose (mg/dL) 110 H 155 H 103 H (75-99) mg/dL 07/06/19 Range/Units 11:57 POC Glucose (mg/dL) 222 H (75-99) mg/dL
[2019-07-06 17:11] LABS: Glucose,Whole Blood 141 mg/dL (75-99)
[2019-07-06] MEDS: ACETAMINOPHEN TAB 325 MG TAB PO PRN (20:52)
[2019-07-06] MEDS: ATORVASTATIN 10 MG TAB PO SCH (20:52)
[2019-07-06] MEDS: amLODIPine 10 MG TAB PO SCH (20:52)
[2019-07-06 21:02] LABS: Glucose,Whole Blood 124 mg/dL (75-99)
[2019-07-07 07:15] LABS: Glucose,Whole Blood 92 mg/dL (75-99)
[2019-07-07] MEDS: FUROSEMIDE 20 MG TAB PO SCH (09:04)
[2019-07-07] MEDS: TAMSULOSIN 0.4 MG CAP.ER.24H PO SCH (09:04)
[2019-07-07] MEDS: CHOLECALCIFEROL 1,000 UNIT TAB PO SCH (09:04)
[2019-07-07] MEDS: LOSARTAN 50 MG TAB PO SCH (09:04)
[2019-07-07] MEDS: CLOPIDOGREL 75 MG TAB PO SCH (09:04)
[2019-07-07] MEDS: hydrALAZINE HCL 50 MG TAB PO SCH ×3 (09:04→22:40)
[2019-07-07] MEDS: ASPIRIN 81 MG PO SCH (09:04)
[2019-07-07 12:53] LABS: Glucose,Whole Blood 126 mg/dL (75-99)
[2019-07-07 13:02] LABS: Glucose,Whole Blood 125 mg/dL (75-99)
--- NOTE | 2019-07-07 13:09 | P.PN ---
Subjective Progress Note Date: 07/07/19 Principal diagnosis: Acute CVA in the left hemispheric posterior thalamus, with the feeling of numbness of the right side of the upper extremities and the lower extremities and spinning the multiple. Transthoracic echocardiogram with the multiple was negative for PFO however if n eurology once the ADOLFO, we will order it as discussed with Dr. Mejia clay pigeon setter. Urinary retention for more than 450 mL of urine and a Tee cath was placed and seen by Dr. lizama urologist, with the recommendation to leave the catheter in place. Patient has lost night shaking chills with no temperature, blood culture was obtained result in progress. Enlargement of the prostate, prostatic cancer, refusal of treatment for the CTA of the prostate. Hypertension and the hypertensive heart disease currently controlled 139/73 blood pressure today. History of previous CVA few years and the past mentioned 3 years I felt that that may be more than left. Dictation on progress note and date of service 07/07/2019 Patient awake alert able to communicate freely and he stated today that prior to the event of feeling numbness of his right side, he worked and he was cutting with a chainsaw weren't in his backyard from 11:00 until 6 PM and he was feeling absolutely fine able to walk no numbness and he was no slurred speech then when he subsequently he started eat and watch TV then he develop the his symptoms of numbness of his arm right sided and right leg and his speech was impaired and he was not feeling in the right side and his arm like a victor hugo. Patient he is feeling much better now with the rehabilitation and discussed the inpatient rehabilitation versus going home and with the home support and rehabilitation therapy. He preferred home. Patient also had urinary retention was significantly more than 450 mL and the Tee catheter was placed as well as consultation with urology Dr. Selby and he noted that echo be continued his problem for 30 days post CVA which has been improved by the MRI that he had a stroke in the posterior thalamic on the left side beside his previous old stroke. Vital signs stable with temperature 98.6 F oral pulse 83 per minute regular sinus respiratory rate 18/m nonlabored and his blood pressure 146/65 with the pulse ox 99%. On the examination patient conscious alert he is oriented is clear at this time. Able to eat and swallow and still rehabilitation in progress. The pupil was equal reactive conjunctiva was pink sclera nonicteric oropharynx h e has decayed teeth and molars and need for further attention by the dentist. Neck was supple no JVD no thyromegaly no lymphadenopathy. Chest clear to auscultation and percussion. Heart regular sinus rhythm history of hypertension stable at this time Abdomen soft positive bowel sounds no tenderness Genitourinary: He had a Tee catheter at this time with drainage no discomfort suprapubic and he doesn't feel pressure in his lower abdomen. Patient has history of prostatic biopsy with [place] 3+4 = [address] with the elevated PSA. Dr. Selby examination found that left lobe of the prostate was nodular probably consistent with prostatic cancer. He advised to the the catheter for couple days and will try to remove the catheter on Monday, also will check with the neurologist if he indeed ADOLFO echocardiogram are not, or he is satisfied with the echocardiogram with the agitation which indicated no PFO by the cardiology. Extremities no edema and positive pulses. Assessment: 1 acute CVA affected the left sided posterior thalamus with the feeling of numbness on his right side his weakness has improving. With the underlying right hemiparesis. #2 hypertension and hypertensive heart disease has been currently controlled poststroke. #3 urinary retention with the possible association with a stroke and he had a Tee catheter. #4 patient currently on Plavix per neurologist. Plan: #1 will see if the neurologist has any added questionable treatment or the need for ADOLFO. #2 underlying the urologist opinion and probably a trial of removing the Tee catheter if he agreed with that and see the patient urinate on his own or we have to keep the catheter for longer duration and follow-up with the urologist. #3 the blood sugar this morning 92. And patient apparently he eat chocolates constantly which increased periodically the blood sugar if wasn't asked. Especially if his hemoglobin A1c checked on admission and found that is 5.4. With no evidence of diabetes mellitus Objective - Vital Signs Vital signs: Vital Signs Temp 98.6 F 07/07/19 08:00 Pulse 83 07/07/19 08:00 Resp 18 07/07/19 08:00 BP 146/65 07/07/19 08:00 Pulse Ox 99 07/07/19 08:00 Intake & Output 07/06/19 07/07/19 07/07/19 18:59 06:59 18:59 Intake Total 480 Output Total 400 1350 Balance 80 -1350 Weight 84.7 kg Intake: Oral 480 Output: Urine 400 1350 Other: Voiding Method Indwelling Catheter Indwelling Catheter Indwelling Catheter # Voids 1 - Labs CBC & Chem 7: 07/05/19 05:49 07/05/19 05:49 Labs: Abnormal Lab Results - Last 24 Hours (Table) 07/06/19 07/06/19 07/07/19 Range/Units 17:08 20:59 12:51 POC Glucose (mg/dL) 141 H 124 H 126 H (75-99) mg/dL Microbiology - Last 24 Hours (Table) 07/05/19 20:49 Blood Culture - Preliminary Blood No Growth after 24 hours 07/05/19 19:54 Blood Culture - Preliminary Blood No Growth after 24 hours
[2019-07-07] MEDS: SENNOSIDES-DOCUSATE SODIUM 1 EACH TAB PO SCH ×2 (14:54→22:42)
[2019-07-07 16:57] LABS: Glucose,Whole Blood 135 mg/dL (75-99)
[2019-07-07 20:28] LABS: Glucose,Whole Blood 109 mg/dL (75-99)
[2019-07-07] MEDS: ATORVASTATIN 10 MG TAB PO SCH (22:40)
[2019-07-07] MEDS: amLODIPine 10 MG TAB PO SCH (22:41)
[2019-07-08 06:08] LABS: Glucose,Whole Blood 96 mg/dL (75-99)
[2019-07-08] MEDS: ACETAMINOPHEN TAB 325 MG TAB PO PRN ×2 (09:02→20:49)
[2019-07-08] MEDS: SENNOSIDES-DOCUSATE SODIUM 1 EACH TAB PO SCH ×2 (09:03→20:49)
[2019-07-08] MEDS: ASPIRIN 81 MG PO SCH (09:03)
[2019-07-08] MEDS: CHOLECALCIFEROL 1,000 UNIT TAB PO SCH (09:03)
[2019-07-08] MEDS: LOSARTAN 50 MG TAB PO SCH (09:03)
[2019-07-08] MEDS: FUROSEMIDE 20 MG TAB PO SCH (09:03)
[2019-07-08] MEDS: CLOPIDOGREL 75 MG TAB PO SCH (09:03)
[2019-07-08] MEDS: TAMSULOSIN 0.4 MG CAP.ER.24H PO SCH (09:03)
[2019-07-08] MEDS: hydrALAZINE HCL 50 MG TAB PO SCH ×3 (09:03→20:49)
[2019-07-08 12:44] LABS: Glucose,Whole Blood 97 mg/dL (75-99)
--- NOTE | 2019-07-08 12:55 | P.PN ---
Progress Note - Text Progress Note Date: 07/08/19 SUBJECTIVE/INTERVAL EVENTS: No acute overnight events. Patient states he feels better but his RUE/RLE and R face still feels numb. 79-year-old male admitted with acute onset of numbness of the entire right side of the body. Patient has stopped taking medication for 7 days as he was not able to get his prescriptions including aspirin. Patient underwent MRI of the brain, which revealed evidence of acute ischemic infarction involving the posterior left thalamus. Old left internal capsular lacunar infarct. Diffuse white matter changes consistent with chronic small vessel ischemia. Objective -Vitals: T 98.4 HR 84 RR 20 BP 140/65 O2 sat 100% on RA -Exam: On examination patient is an elderly Afro-Prydeinig male, in no distress. His mental status, speech and language functions appears normal. On cranial nerve e xamination his pupils are round and reacting to light visual das are full. Face is symmetric and tongue protrudes the midline. Palatal elevation and sensation normal. On muscle strength testing there is no pronator drift and the strength is still normal in arms and legs distally and proximally including detailed testing of the right side. Sensation still produces some paresthesias on the right side although patient states better than yesterday. Patient has mild dysmetria for [id number] testing on the right. Tone and bulk of muscles normal. Assessment and Plan Assessment: * Acute CVA, left thalamic region, presenting with numbness and tingling of the right side of the body. Mechanism of stroke probable lacunar from small vessel disease. Patient has ran out of all his medications 7 days ago including aspirin, which probably contributed to the CVA. * Hypertension * History of stroke 3 years ago with involvement of right side of the body, with no residual deficits. Plan: * Continue aspirin 81mg and Plavix 75 mg daily for 3 weeks. Then Aspirin 81mg qday only * MRI of the brain confirmed left thalamic CVA, likely a lacunar stroke. * Patient already had carotid Doppler and 2-D echo performed 3 months ago, therefore no need to repeat these tests. CTA Head and Neck from 07/05/19 unremarkable. No need for ADOLFO. Stroke most likely from his PMHx of HTN * PT OT, evaluate gait. * Patient is back on his home medication list. BP management per primary, prefer less aggressive BP management (i.e. SBP ~140s is okay) * Fall precautions. * Neurology will sign off at this time. Please feel free to contact Neurology again if with additional questions or concerns.
[2019-07-08 16:57] LABS: Glucose,Whole Blood 120 mg/dL (75-99)
--- NOTE | 2019-07-08 18:05 | P.PN ---
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 Transthoracic echocardiogram with the multiple was negative for PFO however if n eurology once the ADOLFO, we will order it as discussed with Dr. Mejia assistant quality manager. Urinary retention for more than 450 mL of urine and a Tee cath was placed and seen by Dr. lizama urologist, with the recommendation to leave the catheter in place. Patient has lost night shaking chills with no temperature, blood culture was obtained result in progress. Enlargement of the prostate, prostatic cancer, refusal of treatment for the CTA of the prostate. Hypertension and the hypertensive heart disease currently controlled 139/73 blood pressure today. History of previous CVA few years and the past mentioned 3 years I felt that that may be more than left. This dictation on the progress note date of service 07/08/2019. Patient seen and evaluated [id number] and discussed with him the plan. Neurology saw him today Rosaura Lucio. He indicating that no need for ADOLFO at this time and with the underlying history and the current MRI and recent echocardiogram with bubble. Patient has been seen by Dr. Selby urology, he recommended patient to stay overnight and tomorrow morning to discontinue the Tee catheter and observe and subsequently if he tolerated and able to urinate we'll be sending him home. And if he unable to tolerate it will be putting the catheter back after documentation with bladder scan. And he may go home with the leg bag until seen by urology as outpatient. Dr. Selby expecting that could be continued for 30 days until the stroke improving. Patient still have the complaining of numbness and tingling of his right upper extremities and right lower extremities as well and the recommendation to continue the aspirin and Plavix as outpatient and subsequently aspirin only. Clinical exam: Vital sign indicating he is afebrile temperature 90.8 respiratory rate 16 and his blood pressure 176/73 with the uncontrolled blood pressure and the pulse ox 99%. His PSA more than 150 and patient had underlying prostatic cancer and I did ask him now as well on this admission if he wants to have any for further treatment patient denied any treatment and he doesn't want any modality of treatment stated that his brother had it and his son has it and they was treated and they diet. His CBG has been controlled no evidence of diabetes mellitus with history of a hemoglobin A1c 5.4. On the examination: Patient is conscious alert oriented able to communicate well and able to eat and swallow without any dysphagia. He able to ambulate with a walker with the physical therapy. HEENT was negative. Oropharynx dental care is with inability to swallow without choking. Neck supple no JVD no thyromegaly no lymphadenopathy trachea midline. Chest: clear to auscultation and percussion and no wheezes no rhonchi's. Heart regular sinus rhythm and no dysrhythmia. Abdomen: Soft positive bowel sounds no organ enlargement. Genitourinary: Tee catheter in place to be taken out in the morning 6:00 and monitoring patient for retention and obtaining BladderScan before the discharge if still accumulating the urine then we may have to reinsert the Tee catheter with a leg bag with the possibility of discharge and will as well. Neurologically patient has acute stroke on this admission seen by neurologist with the effect on the thalamus posterior segment with the affecting the sensati on with the possible of the association with a hypertension. And the PFO has been ruled out. Assessment: #1 acute CVA of the left thalamus posterior segment with the right upper and lower numbness and tingling. #2 past history of left CVA and right hemiparesis few years back. #3 hypertension was hypertensive heart disease. #4 urine retention with a postvoid all more than 450, he has Tee catheter in place. #5 prostatic CA has been investigated about 3-4 years ago and with the underlying 3+4 =7 Goldie score by the biopsy done by Dr. Nieto urology. With the recent exam by Dr. Selby who found nodularity in the left lobe of the prostate as well with the PSA more than 150, patient again refused any surgical or radiation or any other modality of treatment. #6 underlying osteoarthritis. Plan: #1 continue rehab in the hospital and hopefully as outpatient. #2 Dr. Maninder samaniego urologist ordered the catheter to be removed at 6:00 in a.m. and monitor of any retention of the urine, and subsequent discharge. Number #3 continuation of his medication. And arrangement by the discharge nurse for OT and PT as outpatient. Objective - Vital Signs Vital signs: Vital Signs Temp 98.4 F 07/08/19 04:00 Pulse 95 07/08/19 16:00 Resp 16 07/08/19 16:00 BP 176/73 07/08/19 16:00 Pulse Ox 99 07/08/19 16:00 Intake & Output 07/07/19 07/08/19 07/08/19 18:59 06:59 18:59 Intake Total 516 366 Output Total 1300 1800 Balance 516 -1300 -143 Weight 83.5 kg Intake: Oral 516 366 Output: Urine 1300 1800 Uretheral (Tee) 1000 Other: Voiding Method Indwelling Catheter Indwelling Catheter Indwelling Catheter # Voids 800 - Labs CBC & Chem 7: 07/05/19 05:49 07/05/19 05:49 Labs: Abnormal Lab Results - Last 24 Hours (Table) 07/05/19 07/07/19 07/08/19 Range/Units 05:45 20:28 16:56 POC Glucose (mg/dL) 109 H 120 H (75-99) mg/dL Total PSA >150.0 H (<=4.0) ng/mL Microbiology - Last 24 Hours (Table) 07/05/19 20:49 Blood Culture - Preliminary Blood No Growth after 48 hours 07/05/19 19:54 Blood Culture - Preliminary Blood No Growth after 48 hours
--- NOTE | 2019-07-08 19:40 | P.PN ---
Progress Note - Text Progress Note Date: 07/08/19 I had the opportunity to review office records. It turns out that Mr. Herrera was diagnosed with prostate cancer in January 2014. 2 of 12 biopsies, both at the left prostatic base, revealed [place] 7 (4+3) adenocarcinoma. The patient elected to proceed with active surveillance rather than treatment. He was last seen by Dr. Nieto in March 2014, at which time his PSA level was 12.9. The plan was for him to be seen again in June 2014, but he has failed to keep follow-up appointments. His PSA level is now greater than 150, highly suggestive of metastatic prostate cancer. I explained this to Mr. Herrera, who adamantly refused treatment. However, I explained to him that the treatment most likely to be recommended would be androgen deprivation therapy, to which he is at least agreeable to considering. A bone scan has been ordered, and the PSA level will be removed tomorrow morning for a voiding trial.
[2019-07-08 20:44] LABS: Glucose,Whole Blood 117 mg/dL (75-99)
[2019-07-08] MEDS: amLODIPine 10 MG TAB PO SCH (20:49)
[2019-07-08] MEDS: ATORVASTATIN 10 MG TAB PO SCH (20:49)
[2019-07-08] MEDS ORDERED: hydrALAZINE HCL 50 MG TAB PO SCH (22:00)
[2019-07-09 06:03] LABS: Glucose,Whole Blood 101 mg/dL (75-99)
[2019-07-09] MEDS: TAMSULOSIN 0.4 MG CAP.ER.24H PO SCH (09:10)
[2019-07-09] MEDS: CHOLECALCIFEROL 1,000 UNIT TAB PO SCH (09:10)
[2019-07-09] MEDS: hydrALAZINE HCL 50 MG TAB PO SCH ×2 (09:10→12:22)
[2019-07-09] MEDS: CLOPIDOGREL 75 MG TAB PO SCH (09:10)
[2019-07-09] MEDS: ASPIRIN 81 MG PO SCH (09:10)
[2019-07-09] MEDS: ACETAMINOPHEN TAB 325 MG TAB PO PRN (09:10)
[2019-07-09] MEDS: FUROSEMIDE 20 MG TAB PO SCH (09:10)
[2019-07-09] MEDS: SENNOSIDES-DOCUSATE SODIUM 1 EACH TAB PO SCH (09:11)
[2019-07-09] MEDS: LOSARTAN 50 MG TAB PO SCH (09:11)
[2019-07-09 09:16] VITALS: RESP 16; TEMP 96.7
--- NOTE | 2019-07-09 12:12 | NM ---
EXAMINATION TYPE: NM bone scan whole body DATE OF EXAM: 07/09/2019 COMPARISON: Chest x-ray dated 07/04/2019. HISTORY: Prostate carcinoma. Evaluate for cyst. Delayed whole-body scanning was performed following the injection of 25.3 mCi Tc 99m MDP. Images acq uired 4 hours post injection. FINDINGS: Very minimal excretion is seen from the kidneys. Subcutaneous extravasation is noted of the left ante cubital fossa. Urinary bladder physiologic excretion is seen. Abnormal punctate focus of radiotracer uptake is seen of the left 10th pedicle and near the L2-L3 int ervertebral disc space, possibly at the inferior endplate of L2. This appears linear. Degenerative changes of the axial and appendicular skeleton in the large joints and of the hands and feet are also seen overall symmetric. Focal uptake is seen in the left nasopharynx. IMPRESSION: 1. Abnormal focal uptake in the 10th left pedicle. Thoracic spine CT to evaluate for sclerotic focus. 2. Linear uptake near the intervertebral disc space at L2-L3. This could be on the basis of degenerat geovanna change of the inferior end plate of L2, less likely metastasis, or osteomyelitis discitis. Ensure no leukocytosis. 3. Degenerative changes of the axial and appendicular skeleton. 4. More focal uptake in the left nasopharynx, typically diffuse throughout the nasopharynx. This is o f low suspicion for metastasis.
[2019-07-09 12:31] LABS: Glucose,Whole Blood 111 mg/dL (75-99)
--- NOTE | 2019-07-09 13:14 | P.DS ---
Providers Date of admission: 07/05/19 10:55 Expected date of discharge: 07/09/19 (Left CVA and right hemiparesis, prostatic cancer, urine retention. Prostatic enlargement.) Attending physician: Vahe Rios Consults: 07/04/19 13:55 Consult Physician Routine Consulting Provider: Michael Iyer Consult Reason/Comments: tia Do you want consulting provider notified?: Yes 07/05/19 13:12 Consult Physician Urgent Consulting Provider: Jeremy Reina Consult Reason/Comments: [place] echocardiogram for PFO Do you want consulting provider notified?: Yes 07/05/19 13:19 Consult Physician Routine Consulting Provider: Alexandre Roper Consult Reason/Comments: inpatient Rehab left thalamic stroke Do you want consulting provider notified?: Yes 07/06/19 09:00 Consult Physician Routine Consulting Provider: Maninder Aguillon Consult Reason/Comments: Urinary retention with a postvoid all approximate 500 mL by bladder scan . Do you want consulting provider notified?: Yes Primary care physician: Vahe Rios Discharge summary date of service 07/09/2019. Final diagnosis. #1 acute stroke in the posterior left thalamus new. #2. PFO ruled out by the transthoracic echo with a bubble. #3 urinary retention treated with Tee catheter currently able to urinate. #4 hypertension with hypertensive heart disease. #5 prostatic CA with left lobe nodularity and previous biopsy Goldie 3+4 = 7. #6 urinary retention needed Tee catheter. #7 hypertension with hypertensive heart disease currently controlled on discharge. #8 advanced degenerative osteoarthritis of extremities and the back generalized. #9 refusal of any treatment for the prostate cancer. ER presentation: 79 years old -Thai male presented to the emergency room with complaining of right sided weakness started the day for prior to the admission at 5 PM and his symptoms was on unable to walk with his upper and the lower extremities week describe it as victor hugo without any fever or chills or dizziness with a history of CVA in the past 3 years or more prior to these events. Hospital course: Patient admitted to the hospital with the of with a CAT scan and angiogram computed tomography scan and MRI of the brain with the consultation by Roel Youngblood neurology hospitalist he monitored that the patient as well and echocardiogram transthoracic with bubbles was obtained with negative PFO, patient treated with aspirin and Plavix with the recommendation, Patient has also urinary retention with the inability to urinate Tee catheter was placed after bladder scan obtained which was more than 450 mL, consultation with Dr. Aguillon urologist as well as he has echo was done by Dr. Trixie Forman Ali cardiologists His motor [place] improved with the rehabilitation, however the sensory part with the feeling of numbness of the upper and the lower extremity resistant. [id number] exam on discharge: Vital sign indicating that temperature 96.7 F and the heart rate 81/m regular and, respiratory rate is 16/m nonlabored, his blood pressure 137/64 with a mean 88 and the pulse ox was 100%. HEENT no change negative no fascial acetaminophen 3. She has oral dental need for further treatment for the dental care. No dysphagia able to eat and swallow currently able to walk with the quad cane per physical therapy. Pupil is equal reactive. Neck was supple no JVD no thyromegaly no lymphadenopathy. Chest was clear to auscultation and percussion. The heart regular sinus rhythm. Abdomen soft positive bowel sounds no organ enlargement. Extremities no edema and positive pulses. Neurologically: Underlying gait disturbance with the recent stroke and acute prying the posterior segment of the thalamus on the left hemisphere with the hemiparesis which is improving however the sensation not well improved. Assessment stable general condition for discharge home today. Physical therapy [facility] at home PT and OT and follow-up as outpatient. And follow- up with Dr. ramesh urology as outpatient. Plan - Discharge Summary Discharge Rx Participant: No New Discharge Prescriptions: New hydrALAZINE HCL [Apresoline] 50 mg PO QID #120 tab Clopidogrel [Plavix] 75 mg PO DAILY #30 tab Sennosides-Docusate Sodium [Senokot-S] 1 each PO BID #60 tab Continue amLODIPine [Norvasc] 10 mg PO HS Tamsulosin HCl [Flomax] 0.4 mg PO DAILY Losartan Potassium [Cozaar] 100 mg PO DAILY Atorvastatin Calcium [Lipitor] 10 mg PO HS Cholecalciferol [Vitamin D3 (25 Mcg = 1000 Iu)] 5,000 unit PO DAILY Aspirin 81 mg PO DAILY chew Furosemide [Lasix] 20 mg PO DAILY Discontinued hydrALAZINE HCL [Apresoline] 50 mg PO TID Discharge Medication List Atorvastatin Calcium [Lipitor] 10 mg PO HS 04/08/19 [History] Cholecalciferol [Vitamin D3 (25 Mcg = 1000 Iu)] 5,000 unit PO DAILY 04/08/19 [History] Losartan Potassium [Cozaar] 100 mg PO DAILY 04/08/19 [History] Tamsulosin HCl [Flomax] 0.4 mg PO DAILY 04/08/19 [History] amLODIPine [Norvasc] 10 mg PO HS 04/08/19 [History] Aspirin 81 mg PO DAILY chew 04/09/19 [Rx] Furosemide [Lasix] 20 mg PO DAILY 07/04/19 [History] Clopidogrel [Plavix] 75 mg PO DAILY #30 tab 07/09/19 [Rx] Sennosides-Docusate Sodium [Senokot-S] 1 each PO BID #60 tab 07/09/19 [Rx] hydrALAZINE HCL [Apresoline] 50 mg PO QID #120 tab 07/09/19 [Rx] Follow up Appointment(s)/Referral(s): Maninder Aguillon MD [STAFF PHYSICIAN] - 1 Week Vahe Rios MD [Primary Care Provider] - 1-2 days Patient Instructions/Handouts: Urinary Retention in Men (ED), Stroke (DC) Discharge Disposition: HOME WITH HOME HEALTH SERVICES Care Plan Goals (MU): Home PT and OT to be arranged by discharge nursing staff.
[2019-07-09 14:21] VITALS: BP 140/63; PULSE 92
[2019-07-09] MEDS ORDERED: ACETAMINOPHEN TAB 325 MG TAB PO PRN (15:38)
[2019-07-09 16:30] LABS: Glucose,Whole Blood 167 mg/dL (75-99)
== END 2019-07-09 17:32 | disposition home or self-care (01) | DRG 65 ==
LOC: EC 11:39 → 3SCARD 13:55 → OBSVTOIN 07-05 10:55
PROVIDERS: ADMIT Internal Medicine; ATTEND Internal Medicine
DX: I63.59 Cerebral infarction due to unspecified occlusion or stenosis of other cerebral artery (principal); G81.91 Hemiplegia, unspecified affecting right dominant side; I69.351 Hemiplegia and hemiparesis following cerebral infarction affecting right dominant side; I65.23 Occlusion and stenosis of bilateral carotid arteries; E11.51 Type 2 diabetes mellitus with diabetic peripheral angiopathy without gangrene; G93.89 Other specified disorders of brain; I11.9 Hypertensive heart disease without heart failure; C61 Malignant neoplasm of prostate; R29.700 NIHSS score 0; T39.016A Underdosing of aspirin, initial encounter; E78.5 Hyperlipidemia, unspecified; K02.9 Dental caries, unspecified; M19.90 Unspecified osteoarthritis, unspecified site; N40.1 Benign prostatic hyperplasia with lower urinary tract symptoms; R33.8 Other retention of urine; R68.83 Chills (without fever); R26.9 Unspecified abnormalities of gait and mobility; Z91.128 Patient's intentional underdosing of medication regimen for other reason; Z79.82 Long term (current) use of aspirin; Z79.899 Other long term (current) drug therapy; Z88.0 Allergy status to penicillin; Z98.49 Cataract extraction status, unspecified eye; Z96.1 Presence of intraocular lens; Z87.891 Personal history of nicotine dependence; Z83.3 Family history of diabetes mellitus; Z82.49 Family history of ischemic heart disease and other diseases of the circulatory system
CPT/HCPCS: 36415; 70450; 70496; 70498; 70551; 71046; 78306; 80048; 80053; 80061; 83036; 84153; 84484; 85025; 85610; 85730; 87040; 93005; 93308; 99285

== ENCOUNTER 2019-07-24 14:47 | Observation (INO) | payer MEDICARE ==
[2019-07-24] MEDS ORDERED: SODIUM CHLORIDE 0.9% 500 ML 500 ML IV STA (15:07)
--- NOTE | 2019-07-24 15:24 | ED ---
General Adult HPI - General Chief complaint: Weakness Stated complaint: Weakness, Trouble Walking Time Seen by Provider: 07/24/19 15:07 Source: patient Mode of arrival: wheelchair Limitations: no limitations - History of Present Illness Initial comments: Dictation was produced using [employer] dictation software. please excuse any grammatical, word or spelling errors. Chief Complaint: 79-year-old male past medical history of CVA, diabetes, this slipped and hypertension presents with weakness. History of Present Illness: 79-year-old male. He was brought in by his family. Patient states she's been very weak having difficulty walking. She complains of weakness of both legs. Reports that he lives at home by himself. He is concerned that he might be having another stroke. She reports that he was admitted to the hospital approximately 2 weeks ago. The time he was admitted for stroke with hemiparesis. At that time he was diagnosed with a thalamic stroke. It is a poor historian. Review shows that patient was admitted to the hospital approximately 3 weeks ago. He should present to the emergency Department with right-sided leg weakness. His admitted for acute thalamic stroke. The ROS documented in this emergency department record has been reviewed and confirmed by me. Those systems with pertinent positive or negative responses have been documented in the HPI. All other systems are other negative and/or noncontributory. PHYSICAL EXAM: General Impression: Alert and oriented x3, not in acute distress HEENT: Normocephalic atraumatic, extra-ocular movements intact, pupils equal and reactive to light bilaterally, mucous membranes moist. Cardiovascular: Heart regular rate and rhythm, S1&S2 audible, no murmurs, rubs or gallops Chest: Lungs clear to auscultation bilaterally, no rhonchi, no wheeze, no rales Abdomen: Bowel sounds present, abdomen soft, non-tender, non-distended, no organomegaly Musculoskeletal: Pulses present and equal in all extremities, no peripheral edema Motor: Mild drift to the right lower extremity Neurological: CN II-XII grossly intact, no focal motor or sensory deficits noted Skin: Intact with no visualized rashes Psych: Normal affect and mood ED course: Patient is 79-year-old male presents with generalized weakness. He complains of some difficulties using his right lower leg. His leg weakness is more apparent with trying to ambulate. Upon arrival are within acceptable limi ts. Chart review shows that patient was admitted for right lower extremity weakness approximately 3 weeks ago. Discharge summary suggests patient had a left thalamic stroke. Patient reports that he lives at home by himself. He states that he is unable to care for himself. More history was obtained from patient's son who is now at bedside. He reports that patient complaining of pain especially worse at both ankles. Son also reports patient's ankles both look swollen. To evaluation obtained. CBC, coag panel, metabolic panel is unremarkable. Patient reevaluated at bedside. Patient now is concerned about his left lower extremity pain. Joints are ranged. She complains of significant left lower extremity pain. X-rays of the bilateral ankles are negative. Knee and hip is ranged with some pain however with adequate movement. Given patient's degree of debility we will admit him for observation with orthopedic surgery consultation. Physical therapy will also be consulted for valuation. Pending hip x-rays per request by Dr. Rios. Dr. Rios is agreeable to patient's admission. EKG interpretation: Ventricular rate 97, sinus rhythm,. Interval to 16, QS 90, QTC 469. No MT prolongation, no QTC prolongation, no ST or T-wave changes noted. Overall, this EKG is unremarkable - Related Data Home Medications Medication Instructions Recorded Confirmed Atorvastatin Calcium [Lipitor] 10 mg PO HS 04/08/19 07/04/19 Cholecalciferol [Vitamin D3 (25 5,000 unit PO DAILY 04/08/19 07/04/19 Mcg = 1000 Iu)] Losartan Potassium [Cozaar] 100 mg PO DAILY 04/08/19 07/04/19 Tamsulosin HCl [Flomax] 0.4 mg PO DAILY 04/08/19 07/04/19 amLODIPine [Norvasc] 10 mg PO HS 04/08/19 07/04/19 Furosemide [Lasix] 20 mg PO DAILY 07/04/19 07/04/19 Previous Rx's Medication Instructions Recorded Aspirin 81 mg PO DAILY chew 04/09/19 Clopidogrel [Plavix] 75 mg PO DAILY #30 tab 07/09/19 Sennosides-Docusate Sodium 1 each PO BID #60 tab 07/09/19 [Senokot-S] hydrALAZINE HCL [Apresoline] 50 mg PO QID #120 tab 07/09/19 Allergies Allergy/AdvReac Type Severity Reaction Status Date / Time Penicillins Allergy Unknown Verified 07/24/19 16:26 Childhood Review of Systems ROS Statement: Those systems with pertinent positive or pertinent negative responses have been documented in the HPI. ROS Other: All systems not noted in ROS Statement are negative. Past Medical History Past Medical History: CVA/TIA, Diabetes Mellitus, Hyperlipidemia, Hypertension, Prostate Disorder, Syncope Additional Past Medical History / Comment(s): CVA with right sided weakness, multiple TIAs, prostate CA- no radiation or chem, History of Any Multi-Drug Resistant Organisms: None Reported Past Surgical History: Bowel Resection Additional Past Surgical History / Comment(s): cataract removed. right hand index and middle finger were cut off and reattached. Past Anesthesia/Blood Transfusion Reactions: No Reported Reaction Past Psychological History: No Psychological Hx Reported Smoking Status: Former smoker Past Alcohol Use History: None Reported Past Drug Use History: None Reported - Past Family History Mother Family Medical History: Diabetes Mellitus Father Family Medical History: Hypertension General Exam Limitations: no limitations Course Vital Signs 07/24/19 07/24/19 14:55 17:04 Temperature 98.0 F Pulse Rate 91 92 Respiratory 18 16 Rate Blood Pressure 144/67 173/60 O2 Sat by Pulse 99 100 Oximetry Medical Decision Making - Lab Data Result diagrams: 07/24/19 15:49 07/24/19 15:49 Lab Results 07/24/19 07/24/19 07/24/19 Range/Units 15:49 15:49 15:49 WBC 4.6 (3.8-10.6) k/uL RBC 4.12 L (4.30-5.90) m/uL Hgb 11.2 L (13.0-17.5) gm/dL Hct 35.4 L (39.0-53.0) % MCV 85.9 (80.0-100.0) fL MCH 27.1 (25.0-35.0) pg MCHC 31.5 (31.0-37.0) g/dL RDW 13.6 (11.5-15.5) % Plt Count 261 (150-450) k/uL Neutrophils % 56 % Lymphocytes % 29 % Monocytes % 6 % Eosinophils % 3 % Basophils % 3 % Neutrophils # 2.6 (1.3-7.7) k/uL Lymphocytes # 1.4 (1.0-4.8) k/uL Monocytes # 0.3 (0-1.0) k/uL Eosinophils # 0.1 (0-0.7) k/uL Basophils # 0.1 (0-0.2) k/uL PT (9.0-12.0) sec INR (<1.2) APTT (22.0-30.0) sec Sodium 139 (137-145) mmol/L Potassium 4.9 (3.5-5.1) mmol/L Chloride 110 H (98-107) mmol/L Carbon Dioxide 20 L (22-30) mmol/L Anion Gap 9 mmol/L BUN 24 H (9-20) mg/dL Creatinine 1.31 H (0.66-1.25) mg/dL Est GFR (CKD-EPI)AfAm 59 (>60 ml/min/1.73 sqM) Est GFR (CKD-EPI)NonAf 51 (>60 ml/min/1.73 sqM) Glucose 110 H (74-99) mg/dL Plasma Lactic Acid Colt 0.9 (0.7-2.0) mmol/L Calcium 9.8 (8.4-10.2) mg/dL Magnesium 2.1 (1.6-2.3) mg/dL Total Bilirubin 0.3 (0.2-1.3) mg/dL AST 34 (17-59) U/L ALT 23 (21-72) U/L Alkaline Phosphatase 84 (38-126) U/L Troponin I (0.000-0.034) ng/mL Total Protein 7.1 (6.3-8.2) g/dL Albumin 4.0 (3.5-5.0) g/dL TSH 0.907 (0.465-4.680) mIU/L 07/24/19 07/24/19 Range/Units 15:49 15:49 WBC (3.8-10.6) k/uL RBC (4.30-5.90) m/uL Hgb (13.0-17.5) gm/dL Hct (39.0-53.0) % MCV (80.0-100.0) fL MCH (25.0-35.0) pg MCHC (31.0-37.0) g/dL RDW (11.5-15.5) % Plt Count (150-450) k/uL Neutrophils % % Lymphocytes % % Monocytes % % Eosinophils % % Basophils % % Neutrophils # (1.3-7.7) k/uL Lymphocytes # (1.0-4.8) k/uL Monocytes # (0-1.0) k/uL Eosinophils # (0-0.7) k/uL Basophils # (0-0.2) k/uL PT 10.1 (9.0-12.0) sec INR 0.9 (<1.2) APTT 22.8 (22.0-30.0) sec Sodium (137-145) mmol/L Potassium (3.5-5.1) mmol/L Chloride (98-107) mmol/L Carbon Dioxide (22-30) mmol/L Anion Gap mmol/L BUN (9-20) mg/dL Creatinine (0.66-1.25) mg/dL Est GFR (CKD-EPI)AfAm (>60 ml/min/1.73 sqM) Est GFR (CKD-EPI)NonAf (>60 ml/min/1.73 sqM) Glucose (74-99) mg/dL Plasma Lactic Acid Colt (0.7-2.0) mmol/L Calcium (8.4-10.2) mg/dL Magnesium (1.6-2.3) mg/dL Total Bilirubin (0.2-1.3) mg/dL AST (17-59) U/L ALT (21-72) U/L Alkaline Phosphatase (38-126) U/L Troponin I <0.012 (0.000-0.034) ng/mL Total Protein (6.3-8.2) g/dL Albumin (3.5-5.0) g/dL TSH (0.465-4.680) mIU/L Disposition Clinical Impression: Extremity pain Disposition: ADMITTED IP TO THIS [facility] Condition: Fair Referrals: Vahe Rios MD [Primary Care Provider] - 1-2 days Decision Time: 17:28
[2019-07-24 15:59] LABS: Basophils # (A) 0.1 k/uL (0-0.2); Basophils % (A) 3 %; Eosinophils # (A) 0.1 k/uL (0-0.7); Eosinophils % (A) 3 %; HCT 35.4 % (39.0-53.0); HGB 11.2 gm/dL (13.0-17.5); Lymphocytes # (A) 1.4 k/uL (1.0-4.8); Lymphocytes % (A) 29 %; MCH 27.1 pg (25.0-35.0); MCHC 31.5 g/dL (31.0-37.0); MCV 85.9 fL (80.0-100.0); Mean Platelet Volume 6.3; Monocytes # (A) 0.3 k/uL (0-1.0); Monocytes % (A) 6 %; Neutrophils # (A) 2.6 k/uL (1.3-7.7); Neutrophils % (A) 56 %; Platelet Count 261 k/uL (150-450); RBC 4.12 m/uL (4.30-5.90); RDW 13.6 % (11.5-15.5); WBC 4.6 k/uL (3.8-10.6)
[2019-07-24 16:16] LABS: INR 0.9 (<1.2); Partial Thromboplastin Time 22.8 sec (22.0-30.0); Prothrombin Time 10.1 sec (9.0-12.0)
--- NOTE | 2019-07-24 16:19 | CT ---
EXAMINATION TYPE: CT brain wo con DATE OF EXAM: 07/24/2019 COMPARISON: Prior CT brain 07/04/2019 HISTORY: headache, weakness CT DLP: 1064.4 mGycm Automated exposure control for dose reduction was used. Imaging through the brain using departmental protocol. FINDINGS: There is no interval change. IMPRESSION: STABLE EXAM, FINDINGS LIKELY REPRESENT CHRONIC SMALL VESSEL ISCHEMIA AND AGE-RELATED ATROPHY.
--- NOTE | 2019-07-24 16:21 | XR ---
EXAMINATION TYPE: XR chest 2V DATE OF EXAM: 07/24/2019 COMPARISON: Chest x-ray 07/04/2019 HISTORY: Weakness, cerebrovascular accident TECHNIQUE: Frontal and lateral views of the chest are obtained. FINDINGS: There is no focal air space opacity, pleural effusion, or pneumothorax seen. The cardiac silhouette size is stable. The aorta is dense. There are overlying cardiac leads. The osseous struct ures are intact. IMPRESSION: No acute cardiopulmonary process.
--- NOTE | 2019-07-24 16:22 | XR ---
Bilateral ankles HISTORY: Bilateral ankle swelling 2 views of each ankle are submitted. No comparisons Bilateral ankle swelling is present. Bone mineralization, joint spaces and alignment are maintained. No fracture or dislocation is evident. Atherosclerotic vascular calcifications are noted. Enthesophyt e present at the insertion of the Achilles tendons. IMPRESSION: Soft tissue swelling. Correlate for diabetes, peripheral vascular occlusive disease.
[2019-07-24 16:59] LABS: Calcium 9.8 mg/dL (8.4-10.2); Magnesium 2.1 mg/dL (1.6-2.3); Potassium 4.9 mmol/L (3.5-5.1); Total Bilirubin 0.3 mg/dL (0.2-1.3); Total Protein 7.1 g/dL (6.3-8.2)
[2019-07-24 17:27] LABS: Appearance,Urine Clear (Clear); Bilirubin,Urine Negative (Negative); Blood,Urine Negative (Negative); Color,Urine Light Yellow; Glucose,Urine (UA) Negative (Negative); Ketones,Urine Negative (Negative); Leukocyte Esterase,Urine Negative (Negative); Nitrite,Urine Negative (Negative); Protein,Urine Negative (Negative); Urobilinogen,Urine <2.0 mg/dL (<2.0)
[2019-07-24] MEDS ORDERED: NALOXONE 0.4 MG/ML 1 ML VIAL IV PRN (17:28)
[2019-07-24] MEDS ORDERED: ONDANSETRON 4 MG/2 ML VIAL IVP PRN (17:28)
[2019-07-24] MEDS ORDERED: HYDROcodone/APAP 5-325MG 1 EACH TAB PO PRN (17:28)
[2019-07-24] MEDS: hydrALAZINE HCL 50 MG TAB PO SCH ×2 (18:28→22:03)
--- NOTE | 2019-07-24 18:31 | XR ---
EXAMINATION TYPE: XR femur LT DATE OF EXAM: 07/24/2019 COMPARISON: NONE HISTORY: Weakness TECHNIQUE: 4 views FINDINGS: There is some narrowing of the knee joint spaces with spurring. Hip joint is intact. There is femoral artery calcification. I see no fracture nor dislocation. IMPRESSION: Osteoarthritis in the medial and lateral joint space. No fracture seen.
--- NOTE | 2019-07-24 18:32 | XR ---
EXAMINATION TYPE: XR pelvis AP view DATE OF EXAM: 07/24/2019 COMPARISON: NONE HISTORY: Weakness TECHNIQUE: Single view FINDINGS: Pelvic ring is intact. Proximal femurs are intact. There is minor acetabular spurring. Sacr oiliac joints appear intact. There is no evidence of a fracture. IMPRESSION: Minimal spurring. No fracture seen.
[2019-07-24] MEDS: SODIUM CHLORIDE 0.9% 1,000 ML IV SCH (19:54)
[2019-07-24] MEDS: amLODIPine 10 MG TAB PO SCH (22:04)
[2019-07-24] MEDS: METOPROLOL TARTRATE 25 MG TAB PO SCH (22:04)
[2019-07-24] MEDS: HYDROcodone/APAP 10-325MG 1 EACH TAB PO PRN (22:04)
[2019-07-24] MEDS: ATORVASTATIN 10 MG TAB PO SCH (22:04)
--- NOTE | 2019-07-25 08:22 | P.CNOR ---
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 He is readmitted with left lower extremity pain. He states that the right leg weakness began after his stroke approximately 2 weeks ago. He has since been having increased pain to the left thigh and knee down into the lower leg. He has no history of recent trauma or injury. We're consulted for orthopedic evaluation. Past Medical History Past Medical History: CVA/TIA, Diabetes Mellitus, Hyperlipidemia, Hypertension, Prostate Disorder, Syncope Additional Past Medical History / Comment(s): CVA with right sided weakness, multiple TIAs, prostate CA- no radiation or chem, History of Any Multi-Drug Resistant Organisms: None Reported Past Surgical History: Bowel Resection Additional Past Surgical History / Comment(s): cataract removed. right hand index and middle finger were cut off and reattached. Past Anesthesia/Blood Transfusion Reactions: No Reported Reaction Past Psychological History: No Psychological Hx Reported Smoking Status: Former smoker Past Alcohol Use History: None Reported Additional Past Alcohol Use History / Comment(s): Smoked at age 18 for about a year or two Past Drug Use History: None Reported - Past Family History Mother Family Medical History: Diabetes Mellitus Father Family Medical History: Hypertension Medications and Allergies Home Medications Medication Instructions Recorded Confirmed Type Atorvastatin Calcium [Lipitor] 10 mg PO HS 04/08/19 07/24/19 History Cholecalciferol [Vitamin D3 (25 5,000 unit PO DAILY 04/08/19 07/24/19 History Mcg = 1000 Iu)] Losartan Potassium [Cozaar] 100 mg PO DAILY 04/08/19 07/24/19 History Tamsulosin HCl [Flomax] 0.4 mg PO DAILY 04/08/19 07/24/19 History amLODIPine [Norvasc] 10 mg PO HS 04/08/19 07/24/19 History Aspirin 81 mg PO DAILY chew 04/09/19 07/24/19 Rx Furosemide [Lasix] 20 mg PO DAILY 07/04/19 07/24/19 History Clopidogrel [Plavix] 75 mg PO DAILY #30 tab 07/09/19 07/24/19 Rx hydrALAZINE HCL [Apresoline] 50 mg PO QID #120 tab 07/09/19 07/24/19 Rx Metoprolol Tartrate [Lopressor] 25 mg PO BID 07/24/19 07/24/19 History Allergies Allergy/AdvReac Type Severity Reaction Status Date / Time Penicillins Allergy Unknown Verified 07/24/19 17:28 Childhood Physical Examination This is a pleasant 79-year-old male in no acute distress. He is alert and oriented at this time. Exam of the lower extremities reveals no obvious deformity, rotational deformity or shortening. He is able to lift the leg off the bed independently with some pain. Logroll does not produce pain in the hip. He has fairly good motion with logroll. Exam of the knee reveals trace effusion. He has some difficulty with active flexion of the knee. There is pain with palpation about the medial joint line. There is mild crepitus with motion of the knee. He has full foot and ankle motion without difficulty or pain. Mild calf pain with palpation. Neurovascular status to the lower extremities grossly intact. Results X-rays of the pelvis and left hip reveal mild degenerative changes to the hips. No acute fractures identified. X-rays of the left knee reveals moderate, near [id number] arthritis. No acute fractures identified. - Labs Labs: Abnormal Lab Results - Last 24 Hours (Table) 07/24/19 07/24/19 Range/Units 15:49 15:49 RBC 4.12 L (4.30-5.90) m/uL Hgb 11.2 L (13.0-17.5) gm/dL Hct 35.4 L (39.0-53.0) % Chloride 110 H (98-107) mmol/L Carbon Dioxide 20 L (22-30) mmol/L BUN 24 H (9-20) mg/dL Creatinine 1.31 H (0.66-1.25) mg/dL Glucose 110 H (74-99) mg/dL H & H 07/24/19 Range/Units 15:49 Hgb 11.2 L (13.0-17.5) gm/dL Hct 35.4 L (39.0-53.0) % Coagulation 07/24/19 Range/Units 15:49 INR 0.9 (<1.2) Result Diagrams: 07/24/19 15:49 07/24/19 15:49 Assessment and Plan (1) Recent cerebrovascular accident (CVA) Current Visit: Yes Status: Acute Code(s): Z86.73 - PRSNL HX OF TIA (TIA), AND CEREB INFRC W/O RESID DEFICITS SNOMED Code(s): 265356033 (2) Primary osteoarthritis of left knee Current Visit: Yes Status: Acute Code(s): M17.12 - UNILATERAL PRIMARY OSTEOARTHRITIS, LEFT KNEE SNOMED Code(s): 404785016219059 (3) Extremity pain Current Visit: Yes Status: Acute Code(s): M79.609 - PAIN IN UNSPECIFIED LIMB SNOMED Code(s): 00604705 (4) Weakness Current Visit: No Status: Acute Code(s): R53.1 - WEAKNESS SNOMED Code(s): 72854923 Plan: The clinical and x-ray findings are discussed with the patient. I have reviewed the case with the nurse. I will contact Dr. Rios to discuss possibly injecting his knee with cortisone for pain relief. I would recommend physical therapy and use of a walker for ambulation.
[2019-07-25] MEDS ORDERED: methylPREDNISolone ACETATE 40 MG/ML 1 ML VIAL INTRAARTIC STA (08:36)
[2019-07-25] MEDS ORDERED: LIDOCAINE 2% INJ 20 MG/ML (20 ML MDV) SQ ONE (08:39)
[2019-07-25] MEDS: LOSARTAN 50 MG TAB PO SCH (09:04)
[2019-07-25] MEDS: CLOPIDOGREL 75 MG TAB PO SCH (09:05)
[2019-07-25] MEDS: METOPROLOL TARTRATE 25 MG TAB PO SCH ×2 (09:05→20:38)
[2019-07-25] MEDS: TAMSULOSIN 0.4 MG CAP.ER.24H PO SCH (09:05)
[2019-07-25] MEDS: ASPIRIN 81 MG PO SCH (09:05)
[2019-07-25] MEDS: FUROSEMIDE 20 MG TAB PO SCH (09:05)
[2019-07-25] MEDS: hydrALAZINE HCL 50 MG TAB PO SCH ×4 (09:05→20:38)
--- NOTE | 2019-07-25 19:10 | HP ---
HISTORY AND PHYSICAL This patient is an 79-year-old -[place] male. He is . NEW DATA: FULL CODE. Height is 5 feet 9 inches, weight 83.915 kg. BSA 2 m2. BMI 27.3 kg/m2. ALLERGIES: PENICILLIN. Mr. Herrera was brought by his son to the emergency room because of severe pain in the left lower extremity for 4 days with no improvement. HISTORY OF PRESENT ILLNESS: Mr. Jonah Herrera is an 79-year-old AF/AM male who has been recently in the hospital with underlying stroke found to be in the left thalamus, posterior part, seen by Dr. Iyer, neurologist, as well as the subsequent neurologist, Dr. Reilly. At that time, with the stroke on the thalamus, he had numbness and tingling of his right side, as the lesion was on the left side. The patient, however, felt there could be a second stroke, and at that time he was brought by his son to the emergency room. In the emergency room, the ER physician, Dr. Martin Acosta, saw and evaluated him with the severe left extremity pain and admitted him to the hospital with a consultation with the orthopedic surgeon. The patient was brought to the ER by the wheelchair in the company of his son. Subsequently the patient was seen by JI Cervantes for Dr. Curry, Orthopedics. At that time her impression was that the x-ray of the pelvis and the left hip revealed mild degenerative changes to the hips and no acute fracture. She said also the left knee revealed moderate and near [id number] arthritis, but no evidence of fracture. The plan was for injection of the left knee. The patient in the ER had laboratories done indicating hemoglobin 11.2 with RBC 4.12. He has underlying anemia, however. He was checked during his previous admission and was found to have anemia of chronic illness. He has cancer of the prostate. On his previous admission his PSA was 150 and he had also retention of urine. On this admission, as the patient arrived on the floor, it was found that he had more than 700 urine postvoidal, and at that time we consulted Urology to see him as well as to place a Tee catheter. His creatinine on admission on 07/24/2019 was 1.31 with the blood sugar 110. He has history of diabetes mellitus as well and his carbon dioxide on admission was 20. With the mild anemia, his INR was normal at 0.9. The patient was placed on Plavix for his past stroke and aspirin dual therapy with the advice from Neurology that they be continued for 3 months, then after that the Plavix would be dropped and only the aspirin continued. Chemistry on 07/24/2019 showed sodium 139, potassium 4.9, chloride 110, carbon dioxide 20 with BUN of 24 and creatinine 1.3. The orthopedic surgeon said that he had primary osteoarthritis of the left knee. He had extremity pain and he had generalized weakness. An x-ray was ordered. They recommended injection and we agreed. It appeared to me that the patient received the injection, according to the records. The patient had several x-rays, including the pelvis x-ray indicating no fracture, and the sacroiliac joint appeared intact. He had a left femur x-ray that indicated osteoarthritis in the medial and lateral joint space; no fracture. He also had an ankle x-ray that showed soft tissue swelling; correlate with the diabetes and peripheral vascular disease. No evidence of fracture. He had as well a CT scan of the brain to rule out any new stroke, and the CT scan of the brain was a stable exam. The finding likely represents chronic small vessel disease ischemia and age-related atrophy. Also he had a chest x-ray which showed no active pulmonary disease. EKG was done as well, and that showed normal sinus rhythm with first-degree AV block and moderate voltage criteria for left ventricular hypertrophy and borderline EKG. Patient has a history of CVA, admitted to the hospital at that time with the recent admission. The patient on the previous admission was seen by Dr. Aguillon because of his urinary retention. We will be consulting Dr. Aguillon again. PAST MEDICAL HISTORY: 1. History of diabetes mellitus. 2. Hyperlipidemia. 3. Hypertension. 4. Prostatic cancer. 5. History of syncope in the past. 6. History of right-sided weakness secondary to the left hemispheric stroke. 7. History of bowel resection. 8. History of cataract removed. 9. Right hand index and middle fingers were cut in the past and reattached. No psychological history. SOCIAL HISTORY: He is a former smoker. No alcohol abuse and no drug abuse. FAMILY HISTORY: His mother was diabetic and father with hypertension. ALLERGIES: PENICILLIN. REVIEW OF THE SYSTEMS: He has only pain in the left lower extremity associated with the arthritis and x-ray did not show any metastasis. However, patient has had in his past admission several tests and was also seen by Dr. Aguillon because of the urinary retention with enlarged prostate. RESPIRATORY: No complaint. CARDIOVASCULAR: No complaint. GI: No complaint. He had regular bowel movement. : Mainly the urinary retention. MUSCULOSKELETAL: Inability to walk due to the severe pain in the left lower extremity with the underlying arthritis. He used a quad cane and he was able to walk. When we discussed with the patient, he requested to go back home and we offered snf and patient refused. LABORATORY DATA: Normal PT and INR and PTT, and troponin done in the ER was negative, less than 0.012. He had as well as chemistry profile showing sodium 139, potassium 4.9, chloride 110, carbon dioxide 20, which is the only low value, and that could be with the retention of the urine. He has creatinine 1.31 and estimated glomerular filtration rate 59. Plasma lactic acid, venous, was 0.9, which is normal. No evidence of metabolic acidosis. His liver enzymes were normal with AST 34 and ALT 23, alkaline phosphatase 84. TSH was normal as well. He has known history of anemia secondary to his prostate cancer. He has also history of hypertension. CURRENT MEDICATION: 1. Atorvastatin 10 mg at bedtime. 2. Vitamin D3 5000 daily. 3. Losartan 100 mg daily. 4. Tamsulosin 0.4 daily. 5. Amlodipine 10 mg at bedtime. 6. Furosemide 20 mg daily. 7. Clopidogrel was started on his last admission and this is 75 mg one tablet daily. 8. Stool softener for constipation, one twice a day. 9. Hydralazine 50 mg q.i.d. for the hypertension. PHYSICAL EXAMINATION: The patient is conscious, alert, oriented x3. He is able to answer the questions. HEENT: Head was normocephalic, atraumatic. Pupils equal, reactive. Conjunctivae were pink. Sclerae were nonicteric. Oropharynx: He has no teeth in the upper jaw. In the lower jaw he has 6 teeth. He needs dental attention as well. NECK: Supple. No JVD. No thyromegaly. No lymphadenopathy. Trachea midline. No supraclavicular lymph node. CHEST: Clear to auscultation and percussion. No gallop. No wheezes. HEART: PMI in fifth intercostal space. Normal S1, S2. No gallop. ABDOMEN: Soft, nontender. Positive bowel sounds. EXTREMITIES: He had still the numbness in the right upper extremity and right lower extremity, but the pain that brought him to the hospital was in the left lower extremity. Seen by the Orthopedic. At that time the plan was for injection. The patient was started in the ER on [place] 5/325. That did not hold his pain, which was 10/10, and we increased it to 10/325 every 6 hours p.r.n. He states that his pain is improving at this time. ASSESSMENT: 1. Severe pain, intractable, in the left lower extremity, apparently with the investigation associated with degenerative osteoarthritis of the left knee. 2. Underlying urinary retention. Tee catheter was placed. Will seek the opinion of the urologist as to continuing the catheter or not. On the examination, we did check on the urinalysis, which was negative, clear, and no leukocytes, no nitrite. The patient is on the 4th floor, [facility], and we will check the electrolytes tomorrow as well as CBC. MMODL / IJN: [id number] / MTDD
--- NOTE | 2019-07-25 20:07 | P.GSCN ---
History of Present Illness Consult date: 07/25/19 Reason for Consult: Urinary retention History of present illness: The patient is an 79-year-old male admitted through the emergency room yesterday for evaluation of increasing weakness and left leg pain. He is a poor historian and his history is from a conversation with his nurse and review of the hospital records. He had a left sided CVA approximately 2 weeks ago and continues to have weakness in the right hand and arm. Yesterday evening the patient apparently had increasing lower abdominal discomfort and a bladder scan showed over 300 mL. A catheter was inserted but the amount that drained from the bladder was not recorded at that time. Approximately 6 hours later there was 1100 cc recorded as urine output so presumably the patient had over 700 or 800 cc in his bladder when the catheter was inserted. According to his records was found to be in urinary retention in 06/2019 at the time of his left-sided CVA. He was seen by Dr. Aguillon who noted a nodular prostate. PSA was obtained and was over 150. A bone scan on 07/09 showed no definite evidence of metastatic disease however there were some questionable areas in the region of the left T10 pedicle and lumbosacral spine. The patient's catheter was removed on the day of discharge on 07/09 and he apparently voided twice but a postvoid residual was never checked. The patient has a history of prostate cancer which was diagnosed by me in 2013. At that time his PSA was 12.2. A Goldie 4+3 cancer was noted in the left base and left lateral base. The patient refused any treatment at that time and did not return for follow-up visits despite several attempts at rescheduling him. I last saw him in 02/2024. He was noted to have a PSA of 584 on 04/30/2019 according to the hospital records. He apparently did have a previous episode of urinary retention several years ago and has been able to void with the use of Flomax up until the time of his CVA in late 06/29. Review of Systems - Constitutional Reports fatigue - Cardiovascular Denies edema, Denies shortness of breath - Respiratory Denies cough - Gastrointestinal Denies abdominal pain, Denies constipation - Genitourinary Reports as per HPI Past Medical History Past Medical History: CVA/TIA, Diabetes Mellitus, Hyperlipidemia, Hypertension, Prostate Disorder, Syncope Additional Past Medical History / Comment(s): CVA with right sided weakness, multiple TIAs, prostate CA- no radiation or chem, History of Any Multi-Drug Resistant Organisms: None Reported Past Surgical History: Bowel Resection Additional Past Surgical History / Comment(s): cataract removed. right hand index and middle finger were cut off and reattached. Past Anesthesia/Blood Transfusion Reactions: No Reported Reaction Past Psychological History: No Psychological Hx Reported Smoking Status: Former smoker Past Alcohol Use History: None Reported Additional Past Alcohol Use History / Comment(s): Smoked at age 18 for about a year or two Past Drug Use History: None Reported - Past Family History Mother Family Medical History: Diabetes Mellitus Father Family Medical History: Hypertension Medications and Allergies Home Medications Medication Instructions Recorded Confirmed Type Atorvastatin Calcium [Lipitor] 10 mg PO HS 04/08/19 07/24/19 History Cholecalciferol [Vitamin D3 (25 5,000 unit PO DAILY 04/08/19 07/24/19 History Mcg = 1000 Iu)] Losartan Potassium [Cozaar] 100 mg PO DAILY 04/08/19 07/24/19 History Tamsulosin HCl [Flomax] 0.4 mg PO DAILY 04/08/19 07/24/19 History amLODIPine [Norvasc] 10 mg PO HS 04/08/19 07/24/19 History Aspirin 81 mg PO DAILY chew 04/09/19 07/24/19 Rx Furosemide [Lasix] 20 mg PO DAILY 07/04/19 07/24/19 History Clopidogrel [Plavix] 75 mg PO DAILY #30 tab 07/09/19 07/24/19 Rx hydrALAZINE HCL [Apresoline] 50 mg PO QID #120 tab 07/09/19 07/24/19 Rx Metoprolol Tartrate [Lopressor] 25 mg PO BID 07/24/19 07/24/19 History Allergies Allergy/AdvReac Type Severity Reaction Status Date / Time Penicillins Allergy Unknown Verified 07/24/19 17:28 Childhood Surgical - Exam Vital Signs Temp Pulse Resp BP Pulse Ox 98.0 F 91 18 144/67 99 07/24/19 14:55 07/24/19 14:55 07/24/19 14:55 07/24/19 14:55 07/24/19 14:55 - General well developed, well nourished, no distress - ENT no hearing loss - Neck no masses, no lymphadectomy - Abdomen Abdomen: soft, non tender, no organomegaly - Genitourinary normal penis with no external lesions, other (A Tee catheter is in place and is draining clear urine ) - Rectum Rectum: normal sphincter tone, no masses, other (The prostate is 2-3+ enlarged, hard and coarsely nodular consistent with underlying prostate cancer ) - Neurologic memory loss Results - Labs 07/24/19 15:49 07/24/19 15:49 Abnormal Lab Results - Last 24 Hours (Table) 07/24/19 07/24/19 Range/Units 15:49 15:49 RBC 4.12 L (4.30-5.90) m/uL Hgb 11.2 L (13.0-17.5) gm/dL Hct 35.4 L (39.0-53.0) % Chloride 110 H (98-107) mmol/L Carbon Dioxide 20 L (22-30) mmol/L BUN 24 H (9-20) mg/dL Creatinine 1.31 H (0.66-1.25) mg/dL Glucose 110 H (74-99) mg/dL Diabetes panel 07/24/19 Range/Units 15:49 Sodium 139 (137-145) mmol/L Potassium 4.9 (3.5-5.1) mmol/L Chloride 110 H (98-107) mmol/L Carbon Dioxide 20 L (22-30) mmol/L BUN 24 H (9-20) mg/dL Creatinine 1.31 H (0.66-1.25) mg/dL Glucose 110 H (74-99) mg/dL Calcium 9.8 (8.4-10.2) mg/dL AST 34 (17-59) U/L ALT 23 (21-72) U/L Alkaline Phosphatase 84 (38-126) U/L Total Protein 7.1 (6.3-8.2) g/dL Albumin 4.0 (3.5-5.0) g/dL Thyroid panel 07/24/19 Range/Units 15:49 TSH 0.907 (0.465-4.680) mIU/L Calcium panel 07/24/19 Range/Units 15:49 Calcium 9.8 (8.4-10.2) mg/dL Albumin 4.0 (3.5-5.0) g/dL Pituitary panel 07/24/19 Range/Units 15:49 Sodium 139 (137-145) mmol/L Potassium 4.9 (3.5-5.1) mmol/L Chloride 110 H (98-107) mmol/L Carbon Dioxide 20 L (22-30) mmol/L BUN 24 H (9-20) mg/dL Creatinine 1.31 H (0.66-1.25) mg/dL Glucose 110 H (74-99) mg/dL Calcium 9.8 (8.4-10.2) mg/dL TSH 0.907 (0.465-4.680) mIU/L Adrenal panel 07/24/19 Range/Units 15:49 Sodium 139 (137-145) mmol/L Potassium 4.9 (3.5-5.1) mmol/L Chloride 110 H (98-107) mmol/L Carbon Dioxide 20 L (22-30) mmol/L BUN 24 H (9-20) mg/dL Creatinine 1.31 H (0.66-1.25) mg/dL Glucose 110 H (74-99) mg/dL Calcium 9.8 (8.4-10.2) mg/dL Total Bilirubin 0.3 (0.2-1.3) mg/dL AST 34 (17-59) U/L ALT 23 (21-72) U/L Alkaline Phosphatase 84 (38-126) U/L Total Protein 7.1 (6.3-8.2) g/dL Albumin 4.0 (3.5-5.0) g/dL Assessment and Plan (1) Urinary retention Narrative/Plan: The underlying source of the patient's urinary retention is unclear. It could have been related to his recent CVA with temporary bladder atony, however the patient does have a history of bladder outflow obstruction and a previous episode of urinary retention and he had been taking Flomax. He also appears to have locally advanced prostate cancer which could be another source of the bladder outflow obstruction. For the time being the patient should be continued on catheter drainage and Flomax. Current Visit: No Status: Acute Code(s): R33.9 - RETENTION OF URINE, UNSPECIFIED SNOMED Code(s): 670565276 (2) Prostate cancer Narrative/Plan: He does not have any definite evidence of metastatic disease on his recent bone scan however in view of his markedly elevated PSA he has a high likelihood of at least microscopic metastatic disease. CT scan of the abdomen and pelvis might be considered for further evaluation. Even if this shows no definite evidence of metastatic disease the patient may benefit from androgen deprivation therapy as this could allow some shrinkage of the prostate and allow the patient to void spontaneously with time. Current Visit: Yes Status: Acute Code(s): C61 - MALIGNANT NEOPLASM OF PROSTATE SNOMED Code(s): 526275705
[2019-07-25] MEDS: amLODIPine 10 MG TAB PO SCH (20:38)
[2019-07-25] MEDS: ATORVASTATIN 10 MG TAB PO SCH (20:38)
[2019-07-25] MEDS: HEPARIN SODIUM,PORCINE 5,000 UNIT/ML 1 ML VIAL SQ SCH (20:38)
[2019-07-26] MEDS: SODIUM CHLORIDE 0.9% 1,000 ML IV SCH (07:02)
[2019-07-26 07:46] LABS: Basophils # (A) 0.1 k/uL (0-0.2); Basophils % (A) 2 %; Eosinophils # (A) 0.1 k/uL (0-0.7); Eosinophils % (A) 2 %; HCT 36.4 % (39.0-53.0); Lymphocytes # (A) 1.8 k/uL (1.0-4.8); Lymphocytes % (A) 33 %; MCHC 30.1 g/dL (31.0-37.0); MCV 86.2 fL (80.0-100.0); Mean Platelet Volume 7.2; Monocytes # (A) 0.4 k/uL (0-1.0); Monocytes % (A) 7 %; Neutrophils # (A) 2.9 k/uL (1.3-7.7); Neutrophils % (A) 54 %; Platelet Count 239 k/uL (150-450); RBC 4.22 m/uL (4.30-5.90); RDW 13.6 % (11.5-15.5); WBC 5.4 k/uL (3.8-10.6)
[2019-07-26 07:54] LABS: Calcium 9.3 mg/dL (8.4-10.2); Magnesium 2.1 mg/dL (1.6-2.3); Potassium 4.2 mmol/L (3.5-5.1)
[2019-07-26] MEDS ORDERED: LIDOCAINE 2% INJ 20 MG/ML (20 ML MDV) SQ STA (08:12)
[2019-07-26 08:17] VITALS: RESP 12
[2019-07-26] MEDS ORDERED: methylPREDNISolone ACETATE 40 MG/ML 1 ML VIAL INTRAARTIC STA (08:17)
[2019-07-26] MEDS: HYDROcodone/APAP 10-325MG 1 EACH TAB PO PRN (08:26)
[2019-07-26] MEDS ORDERED: CHOLECALCIFEROL 1,000 UNIT TAB PO SCH (09:00)
--- NOTE | 2019-07-26 09:04 | P.PN ---
Progress Note - Text Progress Note Date: 07/26/19 I discussed with the patient and his son his underlying prostate cancer which is most likely a contributory factor to his urinary retention. His bone scan did not show any definite evidence of metastatic disease. Androgen deprivation therapy may help alleviate his bladder outflow obstruction and I discussed the possibility of starting him on Firmagon in my office next week. I believe this would be preferable to Lupron as it is much more quickly acting. The patient should be discharged with a catheter in place and I would give him a voiding trial week or 2 after he is started on the Firmagon.
[2019-07-26] MEDS: hydrALAZINE HCL 50 MG TAB PO SCH ×2 (10:11→13:17)
[2019-07-26] MEDS: LOSARTAN 50 MG TAB PO SCH (10:12)
[2019-07-26] MEDS: FUROSEMIDE 20 MG TAB PO SCH (10:12)
[2019-07-26] MEDS: TAMSULOSIN 0.4 MG CAP.ER.24H PO SCH (10:12)
[2019-07-26] MEDS: HEPARIN SODIUM,PORCINE 5,000 UNIT/ML 1 ML VIAL SQ SCH (10:12)
[2019-07-26] MEDS: CLOPIDOGREL 75 MG TAB PO SCH (10:12)
[2019-07-26] MEDS: METOPROLOL TARTRATE 25 MG TAB PO SCH (10:12)
[2019-07-26] MEDS: ASPIRIN 81 MG PO SCH (10:12)
--- NOTE | 2019-07-26 10:15 | P.PN ---
Progress Note - Text Progress Note Date: 07/26/19 S: The patient was examined by Kati Bean PA-C yesterday 06/24/19, and a cortisone injection into the left knee was recommended. Kati Bean PA-C spoke with Dr. Rios regarding this cortisone injection, and Dr. Rios gave his clearance to proceed. Patient was examined bedside this morning. He states he is healed. The pain in the left knee. It is similar to the pain was experiencing yesterday. He localizes the pain to the lateral knee. He states the pain is worse with ambulation. He denies swelling, erythema of the knee. Denies fevers or chills. He voices his interest in receiving a cortisone injection today. O: Examination of the left knee, there is no swelling, erythema, ecchymosis, or skin discoloration. No open wounds or lacerations. There is diffuse tenderness about the knee. There is mild pain with flexion of the knee. Patient is able to perform straight leg raise. No effusion. Left lower extremity is warm and well perfused. Motor and sensory function are intact. Calf is soft and non- tender to palpation. A: Left knee osteoarthritis. P: Clinical findings were discussed with the patient. I again offered a cortisone injection today, as this has now been cleared by Dr. Rios. The patient would like to proceed with this injection today. In addition, I recommended the patient participate in physical therapy and use a walker for ambulation. Procedure: Verbal consent for left knee injection was obtained. The skin overlying the superior lateral pole of the patella was prepped first with alcohol and then with Betadine. A solution of 3 ml of 2% Lidocaine and 1 ml of 40 mg of DepoMedrol was drawn up into a syringe. A 22- gauge needle was used to inject the knee using sterile technique. The solution was freely injected. The needle was withdrawn and a Band-Aid was applied and the patient tolerated this well.
[2019-07-26 13:42] VITALS: BP 133/68; PULSE 68; TEMP 98.4
--- NOTE | 2019-07-26 14:35 | DS ---
DISCHARGE SUMMARY He is a FULL CODE. His age is 79 years old, male. He is a 5 foot, 9 inches, weight 83.915 kg, he is BSA 2 and BMI 27.3 kg/m2. Allergy is PENICILLIN. FINAL DIAGNOSES: 1. Acute debility with pain in the left lower extremities. 2. 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 3. Underlying history of prostatic CA. 4. Urinary retention more than 300 mL with feeling of unable to urinate and he had a Tee catheter for maintenance of the urine. 5. Hypertension with hypertensive heart disease. 6. Hyperlipidemia. 7. Degenerative osteoarthritis, generalized. 8. Pain in the left knee, as seen by the Orthopedics and received injection of the medial compartment and the rest of the x-rays has been negative. 9. Patient refused half-way rehabilitation. Also refused the home rehabilitation as well. CONSULTATION: 1. Dr. Curry and the PA, Kati Bean and injection of his left knee. 2. Dr. Nieto, for which it has been decided to continue the Tee catheter for 2 weeks and he cm as outpatient, then he will remove the catheter and give him a trial and then at the same time he will maybe add a new medication. The on the patient presentation to the emergency room. 3. The patient came with inability of the pain in the left leg and unable to walk and he came with a wheelchair. Subsequent hospital course. 4. He is in the hospital, seen by the above consulting physician and he had a Tee catheter with retention of the urine. He feeling much better and he ambulate with a quad cane and he refused any further home or half-way rehabilitation. Otherwise, the patient has been stable general condition. PHYSICAL EXAMINATION: Fcyr-ai-aril examination patient conscious, alert, oriented, and his head is normocephalic, atraumatic. Pupil was equal reactive and oropharynx is able to eat and swallow. Neck was supple. No JVD. No thyromegaly. No lymphadenopathy. The chest is clear to auscultation and percussion. The heart was regular sinus rhythm. Abdomen was soft. Positive bowel sounds and no tenderness in the 4 quadrants .The extremities, no edema and positive pulses. No tenderness on the knee. Neurologically, he is in stable general condition. PLAN: 1. For discharge today, home in stable general condition to follow up with orthopedic if he has further complaints and of his left knee. 2. Meanwhile, he is going to follow up with Dr. Nieto in 2 weeks with the continuing Tee catheter. 3. Followup with Dr. Rios next week. 4. Continue as medication nonsteroidal-inflammatory OTC 1-2 tablets with meals 3 times a day as needed. 5. Patient is in stable general condition as mentioned above and patient discharged home today. MMODL / IJN: [id number] /
== END 2019-07-26 14:17 | disposition home or self-care (01) ==
LOC: EC 14:47 → 4SSUR 17:28
PROVIDERS: ADMIT Internal Medicine; ATTEND Internal Medicine
DX: M17.12 Unilateral primary osteoarthritis, left knee (principal); I69.351 Hemiplegia and hemiparesis following cerebral infarction affecting right dominant side; R33.9 Retention of urine, unspecified; I11.9 Hypertensive heart disease without heart failure; E78.5 Hyperlipidemia, unspecified; R20.0 Anesthesia of skin; N32.0 Bladder-neck obstruction; D63.8 Anemia in other chronic diseases classified elsewhere; C61 Malignant neoplasm of prostate; E11.51 Type 2 diabetes mellitus with diabetic peripheral angiopathy without gangrene; Z90.49 Acquired absence of other specified parts of digestive tract; K59.00 Constipation, unspecified; Z79.82 Long term (current) use of aspirin; Z79.02 Long term (current) use of antithrombotics/antiplatelets; Z79.899 Other long term (current) drug therapy; Z87.891 Personal history of nicotine dependence; Z83.3 Family history of diabetes mellitus; Z82.49 Family history of ischemic heart disease and other diseases of the circulatory system; Z88.0 Allergy status to penicillin
CPT/HCPCS: 51702; 20610; 96372 ×2; 99285; 36415; 93005; 97161; 80053; 80048; 83605; 83735 ×2; 84443; 84484; 85025 ×2; 85610; 85730; 81003; 73600; 72170; 73552; 71046; 70450; G0378 ×3; J1644 ×2

== ENCOUNTER 2019-08-02 09:37 | Emergency (ER) | payer MEDICARE ==
[2019-08-02 09:48] VITALS: TEMP 97.9
--- NOTE | 2019-08-02 11:14 | ED ---
Abdominal Pain HPI - General Chief Complaint: Abdominal Pain Stated Complaint: Urogenital Time Seen by Provider: 08/02/19 09:45 Source: patient Mode of arrival: ambulatory Limitations: no limitations - History of Present Illness Initial Comments: The patient is an 79-year-old male with past medical history of prostate cancer, CVA with urinary retention who presents to the emergency department requesting to have his catheter removed. Patient was hospitalized on the 13 of this month. There was question that the patient may have had a new stroke. During hospitalization he was found have urinary retention and they placed a Tee at that time. He was supposed to follow-up with Dr. Nieto in office. When questioning the patient regarding this he is unsure if he has any follow-up appointment scheduled. He states that he did not have difficulty voiding while hospitalized and is unsure why they placed the catheter in the first place. He is requesting to have it out. He does admit to a history of prostate cancer after I read his chart. He denies any dysuria or hematuria. Denies any abdominal pain. No fevers or chills. There are no other alleviating, precipitating or modifying factors - Related Data Home Medications Medication Instructions Recorded Confirmed Atorvastatin Calcium [Lipitor] 10 mg PO HS 04/08/19 07/24/19 Cholecalciferol [Vitamin D3 (25 5,000 unit PO DAILY 04/08/19 07/24/19 Mcg = 1000 Iu)] Losartan Potassium [Cozaar] 100 mg PO DAILY 04/08/19 07/24/19 Tamsulosin HCl [Flomax] 0.4 mg PO DAILY 04/08/19 07/24/19 amLODIPine [Norvasc] 10 mg PO HS 04/08/19 07/24/19 Furosemide [Lasix] 20 mg PO DAILY 07/04/19 07/24/19 Metoprolol Tartrate [Lopressor] 25 mg PO BID 07/24/19 07/24/19 Previous Rx's Medication Instructions Recorded Aspirin 81 mg PO DAILY chew 04/09/19 Clopidogrel [Plavix] 75 mg PO DAILY #30 tab 07/09/19 hydrALAZINE HCL [Apresoline] 50 mg PO QID #120 tab 07/09/19 Allergies Allergy/AdvReac Type Severity Reaction Status Date / Time Penicillins Allergy Unknown Verified 08/02/19 09:48 Childhood Review of Systems ROS Statement: Those systems with pertinent positive or pertinent negative responses have been documented in the HPI. ROS Other: All systems not noted in ROS Statement are negative. Past Medical History Past Medical History: CVA/TIA, Diabetes Mellitus, Hyperlipidemia, Hypertension, Prostate Disorder, Syncope Additional Past Medical History / Comment(s): CVA with right sided weakness, multiple TIAs, prostate CA- no radiation or chem, History of Any Multi-Drug Resistant Organisms: None Reported Past Surgical History: Bowel Resection Additional Past Surgical History / Comment(s): cataract removed. right hand index and middle finger were cut off and reattached. Past Anesthesia/Blood Transfusion Reactions: No Reported Reaction Past Psychological History: No Psychological Hx Reported Smoking Status: Former smoker Past Alcohol Use History: None Reported Past Drug Use History: None Reported - Past Family History Mother Family Medical History: Diabetes Mellitus Father Family Medical History: Hypertension General Exam Limitations: no limitations General appearance: alert, in no apparent distress Head exam: Present: atraumatic, normocephalic, normal inspection Eye exam: Present: normal appearance, PERRL, EOMI. Absent: scleral icterus, conjunctival injection, periorbital swelling ENT exam: Present: normal exam, mucous membranes moist Neck exam: Present: normal inspection. Absent: tenderness, meningismus, lymphadenopathy Respiratory exam: Present: normal lung sounds bilaterally. Absent: respiratory distress, wheezes, rales, rhonchi, stridor Cardiovascular Exam: Present: regular rate, normal rhythm, normal heart sounds. Absent: systolic murmur, diastolic murmur, rubs, gallop, clicks GI/Abdominal exam: Present: soft, normal bowel sounds. Absent: distended, tenderness, guarding, rebound, rigid exam: Present: normal inspection. Absent: testicular tenderness, urethral discharge Extremities exam: Present: normal inspection, full ROM, normal capillary refill. Absent: tenderness, pedal edema, joint swelling, calf tenderness Back exam: Present: normal inspection Neurological exam: Present: alert, oriented X3, CN II-XII intact Psychiatric exam: Present: normal affect, normal mood Skin exam: Present: warm, dry, intact, normal color. Absent: rash Course Vital Signs 08/02/19 08/02/19 09:45 11:26 Temperature 97.9 F Pulse Rate 98 88 Respiratory 20 16 Rate Blood Pressure 172/69 170/68 O2 Sat by Pulse 99 98 Oximetry Medical Decision Making - Medical Decision Making Upon arrival the patient was placed into room 6. A thorough history and physical exam is performed. Patient is adamant that he wants his catheter removed. I did review the patient's record. When he was hospitalized and catheter was placed on the , he did have output of 300 mL of urine. There was question that the patient may have been retaining up to 800 mL. He was supposed to follow up in office to have his catheter removed after one week. I discussed the case with Dr. Barboza. He did agree that the patient could have his catheter removed with trial of void. I discussed this with the patient. Catheter is removed. He is requesting discharge at this time. I informed him that he needs to follow-up with Dr. ineto regarding his retention and prostate cancer. The patient does have retention of urine again he should return to the emergency department for Tee placement. Family is at bedside and understands this. Patient was then discharged home with follow-up. Disposition Clinical Impression: Urinary retention Disposition: HOME SELF-CARE Condition: Stable Instructions (If sedation given, give patient instructions): Urinary Retention in Men (ED) Additional Instructions: You must follow-up with Dr. Nieto without fail. Return to the emergency room if you have any difficulties urinating or any new symptoms. Is patient prescribed a controlled substance at d/c from ED?: No Referrals: Vahe Rios MD [Primary Care Provider] - 1-2 days Zacarias Nieto MD [STAFF PHYSICIAN] - 1-2 days Time of Disposition: 11:14
[2019-08-02 11:27] VITALS: BP 170/68; PULSE 88; RESP 16
== END 2019-08-02 11:26 | disposition home or self-care (01) ==
LOC: EC 09:37
DX: R33.9 Retention of urine, unspecified (principal); Z46.6 Encounter for fitting and adjustment of urinary device; R10.30 Lower abdominal pain, unspecified; E78.5 Hyperlipidemia, unspecified; I10 Essential (primary) hypertension; Z85.46 Personal history of malignant neoplasm of prostate; Z86.73 Personal history of transient ischemic attack (TIA), and cerebral infarction without residual deficits; Z98.890 Other specified postprocedural states; Z87.891 Personal history of nicotine dependence; Z79.899 Other long term (current) drug therapy; Z88.0 Allergy status to penicillin
CPT/HCPCS: 99284

== ENCOUNTER 2021-03-15 | Inpatient (IN) | payer MEDICARE | END 2021-03-19 12:00 | disposition hospice, home (50) | DRG 281 | PROVIDERS: ADMIT Internal Medicine ==